=== PATIENT | female | born 1950 | race Caucasian/White ===

== ENCOUNTER 2020-04-15 10:27 | Inpatient (IN) | payer MEDICARE, OTHER, MEDICAID ==
[~2020-04-15] VITALS: Ht 160 cm; Wt 104.1 kg
--- NOTE | 2020-04-15 10:45 | PHYS DOC ---
Past Medical History Past Medical History: CHF, COPD, Diabetes-Type II, Hypertension, Hypothyroid, Other Additional Past Medical Histor: RLS, DIVERTICULITIS, NEUROPATHY Past Surgical History: Hip Replacement, Tubal ligation Smoking Status: Never Smoker Alcohol Use: None Drug Use: None General Adult EDM: Chief Complaint: MECHANICAL FALL HPI: HPI: Patient is a 69 year old female presents via EMS with report of right leg weakness causing fall earlier today. Patient also called EMS yesterday for similar requiring a lift assist. EMS noted patient's heart rate to be significantly low down into the 40s. Patient does report her heart rate typically is between 50 and 60. Patient denies any dizziness or lightheadedness. Patient does report her right leg/hip with significant pain. Denies head trauma or neck pain. Patient reports generalized malaise and weakness. Denies chest pain, shortness of air, or cough. Review of Systems: Review of Systems: Constitutional: Denies fever or chills Eyes: Denies redness or eye pain HENT: Denies nasal congestion or sore throat Respiratory: Denies cough or shortness of breath Cardiovascular: Denies chest pain or palpitations GI: Denies abdominal pain, nausea, or vomiting : Denies dysuria or hematuria Musculoskeletal: Denies back pain; reports bilateral hip pain right greater than left Integument: Denies rash or skin lesions Neurologic: Denies headache; reports generalized weakness Complete systems were reviewed and found to be within normal limits, except as documented in this note. Allergies: Allergies: Allergies Coded Allergies Type Severity Reaction Last Updated Verified vancomycin Adverse Reaction Intermediate fever 04/15/20 Yes Physical Exam: PE: Constitutional: Well developed, obese, no acute distress, non-toxic appearance HENT: Normocephalic, atraumatic Eyes: PERRL, EOMI, conjunctiva normal, no discharge, no nystagmus Neck: Normal range of motion, no tenderness, supple Lungs & Thorax: No respiratory distress, equal chest rise and fall Cardiac: Bradycardic, bilateral radial pulses +2 Abdomen: Soft, no tenderness, no guarding/rebound tenderness/distention; pelvis stable and nontender Skin: Warm, dry, no erythema Extremities: No tenderness, ROM intact, trace edema BLE, pain with range of motion about bilateral hip-right greater than left, no deformity Neurologic: Alert and oriented X 3, normal motor function, normal sensory function, no focal deficits noted Psychologic: Affect normal, judgment normal Current Patient Data: Vital Signs: Vital Signs Date Time Temp Pulse Resp B/P (MAP) Pulse Ox O2 Delivery O2 Flow Rate FiO2 04/15/20 10:27 97.5 41 16 103/45 (64) 95 Room Air 97.5 EKG: EKG: @1040 Bradycardic afib at 43bpm, RBBB, NO ST elevation, QRS 78ms, QT/QTc 458 /388ms, t wave inversion III Radiology/Procedures: Radiology/Procedures: PROCEDURE: HIP BILATERAL WITH PELVIS AP view of the pelvis and AP and frog-leg views of the right hip and frog-leg view of the left hip Clinical indications: Pain. FINDINGS: Total left hip arthroplasty is evident which is well aligned. There is fusion of the right hip joint. No acute fracture or dislocation or lytic process or diastases is evident. IMPRESSION: No acute osseous abnormality. Electronically signed by: Eduin Castillo MD (04/15/2020 11:40 AM) [id number] PROCEDURE: CHEST AP ONLY XR CHEST 1V CLINICAL INDICATIONS: Weakness. COMPARISON: No previous chest x-ray available. CT study of the abdomen dated January 02, 2020. Findings: There is focal eventration of the medial and anterior aspects of the right hemidiaphragm. There is a moderate-sized hiatal hernia present. There is blunting of the left lateral costophrenic angle due to extrapleural fat. These findings were seen on the CT study. Heart size is prominent. Some of this is due to rotation towards the left side and AP magnification. Otherwise no acute lung infiltrate or pleural effusion or pneumothorax or pulmonary edema is seen. IMPRESSION: No acute lung infiltrate. Electronically signed by: Eduin Castillo MD (04/15/2020 11:38 AM) [id number] PROCEDURE: CT HEAD AND CERVICAL SPINE WO EXAM: Head and cervical spine CT without contrast. HISTORY: Weakness. Pain. Fall. TECHNIQUE: Computed tomographic images of the head and cervical spine were obtained without intravenous contrast. *One or more of the following individualized dose reduction techniques were utilized for this examination: 1. Automated exposure control. 2. Adjustment of the mA and/or kV according to patient size. 3. Use of iterative reconstruction technique. COMPARISON: None. FINDINGS: Head: There is no acute hemorrhage. There is no mass effect or midline shift. There is no hydrocephalus. There are scattered areas of hypodensity within the cerebral white matter, likely due to chronic small vessel disease in a patient of this age. There are suspected small chronic infarct within the left cerebellum. The orbits are unremarkable. There are tiny maxillary sinus mucous retention cysts. The mastoid air cells are clear. There is no suspicious calvarial lesion. Cervical spine: There is multilevel endplate remodeling with disc space narrowing and anterior spurring. There is degenerative facet arthropathy at multiple levels with associated fusion of several facet joints. There is no acute fracture or suspicious osseous lesion. There is cervical curvature due to thoracic scoliosis. The airways midline and widely patent. There is an incidental azygos lobe. The combination of degenerative changes results in mild left foraminal stenosis at C3-C4. No severe stenosis is seen. IMPRESSION: 1. No acute intracranial finding or evidence of acute cervical spine trauma. 2. Bilateral cerebral white matter changes, likely due to chronic small vessel d isease. 3. Multilevel degenerative change involving the cervical spine, described above. Electronically signed by: Valerie Stevenson MD (04/15/2020 11:51 AM) [id number] Course & Med Decision Making: Course & Med Decision Making Pertinent Labs and Imaging studies reviewed. (See chart for details) Patient presents via EMS with report of generalized weakness and history of fall today and yesterday. Patient denies any head trauma. Patient with pain on range of motion to bilateral legs right greater than left at hip. EKG with bradycardic rhythm without P waves. Labs obtained and posted to chart. Significant hyperkalemia noted. Calcium gluconate, insulin, and dextrose provided. A continuous albuterol nebulizer treatment also given. CT head/cervical spine without acute process. Chest x-ray stable. Bilateral hip x-rays with pelvis AP also without acute finding. Patient requiring admission for further evaluation and treatment. Discussed with Dr. Rubio (hospitalist) who is in agreement with admission. Dr. Rubio requests consultation to nephrology and requests 40mg of IV Lasix. Discussed findings and plan with patient, who acknowledges understanding and agreement. Tavia Disclaimer: Tavia Disclaimer: This electronic medical record was generated, in whole or in part, using a voice recognition dictation system. Departure Departure Impression: Primary Impression: Hyperkalemia Additional Impressions: Generalized weakness Hip pain, bilateral Disposition: ADMITTED INPT THIS HOSP Admitting Physician: FLIP Quintana) Condition: GUARDED Critical Care Time Critical care time was 30 minutes which includes time at bedside, spent in discussion of patient's care with specialists and/or family members, with interpretation of laboratory and/or radiological studies and is exclusive of procedures. LATESHA CENTENO DO Apr 15, 2020 10:45
[2020-04-15 10:56] LABS: BASO % 0 % (0-3); EOS % 0 % (0-3); HEMATOCRIT 33.1 % (36.0-47.0); HEMOGLOBIN 10.2 g/dL (12.0-15.5); LYMPH # 0.7 x10^3/uL (1.0-4.8); LYMPH % 6 % (24-48); MEAN CORPUSCULAR HEMOGLOBIN 26 pg (25-35); MEAN CORPUSCULAR HGB CONC 31 g/dL (31-37); MEAN CORPUSCULAR VOLUME 85 fL (79-100); MONO # 0.5 x10^3/uL (0.0-1.1); MONO % 4 % (0-9); NEUT % 89 % (31-73); PLATELET COUNT 284 x10^3/uL (140-400); RED BLOOD COUNT 3.91 x10^6/uL (3.50-5.40); RED CELL DISTRIBUTION WIDTH 20.4 % (11.5-14.5); WHITE BLOOD COUNT 11.2 x10^3/uL (4.0-11.0)
[2020-04-15 11:09] LABS: ALBUMIN 3.8 g/dL (3.4-5.0); CALCIUM 8.8 mg/dL (8.5-10.1); CREATININE 2.1 mg/dL (0.6-1.0); GFR 23.4; MAGNESIUM 2.6 mg/dL (1.8-2.4); TOTAL BILIRUBIN 0.3 mg/dL (0.2-1.0); TOTAL PROTEIN 7.6 g/dL (6.4-8.2)
[2020-04-15 11:15] LABS: POTASSIUM 6.8 mmol/L (3.5-5.1)
[2020-04-15] MEDS ORDERED: DEXTROSE 50% 25 GM / 50ML DISP.SYRIN. IV ONE (11:15)
[2020-04-15] MEDS ORDERED: ALBUTEROL SULFATE 2.5 MG/3 ML NEBU. CONT NEB ONE (11:15)
[2020-04-15] MEDS ORDERED: CALCIUM GLUCONATE 1,000 MG/10 ML VIAL. IVP ONE (11:15)
[2020-04-15] MEDS ORDERED: INSULIN REGULAR 100 UNIT/ML 3ML VIAL. IV ONE (11:15)
[2020-04-15 11:27] LABS: % LYMPHS 6 % (24-48); % MONOS 5 % (0-10); % SEGS 89 % (35-66); PLT ESTIMATE ADEQUATE (ADEQUATE)
[2020-04-15 11:28] LABS: ANISOCYTOSIS SLIGHT; OVALOCYTES FEW; TARGET CELLS OCC; TEAR DROP CELLS OCC
--- NOTE | 2020-04-15 11:41 | RAD ---
XR CHEST 1V CLINICAL INDICATIONS: Weakness. COMPARISON: No previous chest x-ray available. CT study of the abdomen dated January 02, 2020. Findings: There is focal eventration of the medial and anterior aspects of the right hemidiaphragm. T here is a moderate-sized hiatal hernia present. There is blunting of the left lateral costophrenic an gle due to extrapleural fat. These findings were seen on the CT study. Heart size is prominent. Some of this is due to rotation towards the left side and AP magnification. Otherwise no acute lung infilt rate or pleural effusion or pneumothorax or pulmonary edema is seen. IMPRESSION: No acute lung infiltrate. Electronically signed by: Eduin Castillo MD (04/15/2020 11:38 AM) [id number]
--- NOTE | 2020-04-15 11:42 | RAD ---
AP view of the pelvis and AP and frog-leg views of the right hip and frog-leg view of the left hip Clinical indications: Pain. FINDINGS: Total left hip arthroplasty is evident which is well aligned. There is fusion of the right hip joint. No acute fracture or dislocation or lytic process or diastases is evident. IMPRESSION: No acute osseous abnormality. Electronically signed by: Eduin Castillo MD (04/15/2020 11:40 AM) [id number]
--- NOTE | 2020-04-15 11:53 | RAD ---
EXAM: Head and cervical spine CT without contrast. HISTORY: Weakness. Pain. Fall. TECHNIQUE: Computed tomographic images of the head and cervical spine were obtained without intraveno us contrast. *One or more of the following individualized dose reduction techniques were utilized for this examina tion: 1. Automated exposure control. 2. Adjustment of the mA and/or kV according to patient size. 3. Use of iterative reconstruction technique. COMPARISON: None. FINDINGS: Head: There is no acute hemorrhage. There is no mass effect or midline shift. There is no hydrocephal us. There are scattered areas of hypodensity within the cerebral white matter, likely due to chronic small vessel disease in a patient of this age. There are suspected small chronic infarct within the l eft cerebellum. The orbits are unremarkable. There are tiny maxillary sinus mucous retention cysts. T he mastoid air cells are clear. There is no suspicious calvarial lesion. Cervical spine: There is multilevel endplate remodeling with disc space narrowing and anterior spurri ng. There is degenerative facet arthropathy at multiple levels with associated fusion of several face t joints. There is no acute fracture or suspicious osseous lesion. There is cervical curvature due to thoracic scoliosis. The airways midline and widely patent. There is an incidental azygos lobe. The c ombination of degenerative changes results in mild left foraminal stenosis at C3-C4. No severe stenos is is seen. IMPRESSION: 1. No acute intracranial finding or evidence of acute cervical spine trauma. 2. Bilateral cerebral white matter changes, likely due to chronic small vessel disease. 3. Multilevel degenerative change involving the cervical spine, described above. Electronically signed by: Valerie Stevenson MD (04/15/2020 11:51 AM) [id number]
[2020-04-15] MEDS ORDERED: DEXTROSE 50% 25 GM / 50ML DISP.SYRIN. IV PRN (12:15)
[2020-04-15] MEDS ORDERED: ONDANSETRON PF 4 MG/2 ML VIAL. IV PRN (12:15)
[2020-04-15] MEDS ORDERED: FUROSEMIDE 40 MG/4 ML VIAL. IVP ONE (13:00)
[2020-04-15 13:35] VITALS: BP 103/23
[2020-04-15 15:00] VITALS: BP 104/32
[2020-04-15] MEDS ORDERED: IV NORMAL SALINE 500ML BAG 500 ML IV ONE (15:00)
[2020-04-15] MEDS ORDERED: traMADol 50 MG TABLET PO PRN (15:45)
--- NOTE | 2020-04-15 15:50 | PDOC1 ---
History and Physical Date of Admission Date of Admission DATE: 04/15/20 TIME: 15:30 Identification/Chief Complaint Chief Complaint Weakness Source Source: Chart review, Patient History of Present Illness History of Present Illness Patient 69-year-old female who presents to the ER for evaluation after fall earlier today. Patient also had a fall yesterday, for which she required EMS lift assist. She states her fall was secondary to right lower extremity weakness. She denies any head trauma. Since the time of her fall today she began complaining of left hip pain, 10/10, aggravated by movement. She denies any chest pain, shortness of breath, cough, or fever. Upon evaluation in ER she was noted to have potassium of 6.8, sodium 128, BUN 68, creatinine 2.1. Will admit patient for further medical management with nephrology consult. Past Medical History Past Medical History CHF, COPD, DM2, hypertension, hypothyroidism, restless leg syndrome, diverticulitis, peripheral neuropathy. Past Surgical History Past Surgical History Tubal ligation, hip replacement Family History Family History: Cancer, Coronary Artery Disease, Heart Disease Social History Smoke: No ALCOHOL: none Drugs: None Current Problem List Problem List Problems Medical Problems: (1) Generalized weakness Status: Acute (2) Hip pain, bilateral Status: Acute (3) Hyperkalemia Status: Acute Current Medications Current Medications Current Medications Calcium Gluconate (Calcium Gluconate) 1,000 mg 1X ONCE IVP Last administered on 04/15/20at 11:50; Start 04/15/20 at 11:15; Stop 04/15/20 at 11:18; Status DC Dextrose (Dextrose 50%-Water Syringe) 25 gm 1X ONCE IV Last administered on 04/15/20at 11:52; Start 04/15/20 at 11:15; Stop 04/15/20 at 11:18; Status DC Insulin Human Regular (HumuLIN R VIAL) 10 unit 1X ONCE IV Last administered on 04/15/20at 11:51; Start 04/15/20 at 11:15; Stop 04/15/20 at 11:18; Status DC Albuterol Sulfate (Ventolin Neb Soln) 10 mg 1X ONCE CONT NEB Last administered on 04/15/20at 12:00; Start 04/15/20 at 11:15; Stop 04/15/20 at 11:18; Status DC Furosemide (Lasix) 40 mg 1X ONCE IVP ; Start 04/15/20 at 13:00; Stop 04/15/20 at 13:01; Status DC Ondansetron HCl (Zofran) 4 mg PRN Q8HRS PRN IV NAUSEA/VOMITING; Start 04/15/20 at 12:15; Stop 04/16/20 at 12:14 Insulin Human Lispro (HumaLOG) 0-5 UNITS TIDWMEALS SQ ; Start 04/15/20 at 17:00 Dextrose (Dextrose 50%-Water Syringe) 12.5 gm PRN Q15MIN PRN IV SEE COMMENTS; Start 04/15/20 at 12:15 Sodium Chloride 500 ml @ 500 mls/hr 1X ONCE IV Last administered on 04/15/20at 15:23; Start 04/15/20 at 15:00; Stop 04/15/20 at 15:59 Allergies Allergies: Coded Allergies: vancomycin (Verified Adverse Reaction, Intermediate, fever, 04/15/20) ROS Review of System GENERAL: No history of weight change, weakness or fevers. SKIN: No bruising, hair changes or rashes. EYES: No blurred, double or loss of vision. NOSE AND THROAT: No history of nosebleeds, hoarseness or sore throat. HEART: Denies chest pain, denies palpitations. LUNGS: Denies cough, hemoptysis, wheezing or shortness of breath. GASTROINTESTINAL: Denies nausea, vomiting, abdominal pain. GENITOURINARY: Denies dysuria, frequency, urgency, hematuria. NEUROLOGIC: Denies history of numbness, tingling, tremor or weakness. PSYCHIATRIC: Denies anxiety, denies depression. ENDOCRINE: No history of heat or cold intolerance, polyuria or polydipsia. EXTREMITIES: Left hip pain, lower extremity weakness. Physical Exam Physical Exam General: Alert, Oriented X3, Cooperative, moderate distress. Morbid obesity. HEENT: PERRLA, EOMI Lungs: Decreased breath sounds, Normal air movement Heart: RRR, no murmurs Cardiovascular: S1, S2 Abdomen: Normal bowel sounds, Soft, No tenderness Extremities: Left hip tenderness. No clubbing, No cyanosis Skin: No rashes, No significant lesion Neuro: Normal speech, Normal tone, Sensation intact Psych/Mental Status: Mental status NL, Mood NL Vitals Vitals Vital Signs Date Time Temp Pulse Resp B/P (MAP) Pulse Ox O2 Delivery O2 Flow Rate FiO2 04/15/20 13:35 97.4 54 20 103/23 (49) 93 Room Air 97.4 Labs Labs Laboratory Tests Test 04/15/20 10:39 04/15/20 11:46 04/15/20 14:20 White Blood Count 11.2 x10^3/uL (4.0-11.0) Red Blood Count 3.91 x10^6/uL (3.50-5.40) Hemoglobin 10.2 g/dL (12.0-15.5) Hematocrit 33.1 % (36.0-47.0) Mean Corpuscular Volume 85 fL (79-100) Mean Corpuscular Hemoglobin 26 pg (25-35) Mean Corpuscular Hemoglobin Concent 31 g/dL (31-37) Red Cell Distribution Width 20.4 % (11.5-14.5) Platelet Count 284 x10^3/uL (140-400) Neutrophils (%) (Auto) 89 % (31-73) Lymphocytes (%) (Auto) 6 % (24-48) Monocytes (%) (Auto) 4 % (0-9) Eosinophils (%) (Auto) 0 % (0-3) Basophils (%) (Auto) 0 % (0-3) Neutrophils # (Auto) 10.0 x10^3/uL (1.8-7.7) Lymphocytes # (Auto) 0.7 x10^3/uL (1.0-4.8) Monocytes # (Auto) 0.5 x10^3/uL (0.0-1.1) Eosinophils # (Auto) 0.0 x10^3/uL (0.0-0.7) Basophils # (Auto) 0.0 x10^3/uL (0.0-0.2) Segmented Neutrophils % 89 % (35-66) Lymphocytes % 6 % (24-48) Monocytes % 5 % (0-10) Platelet Estimate Adequate (ADEQUATE) Anisocytosis Slight Target Cells Occ Tear Drop Cells Occ Ovalocytes Few Sodium Level 128 mmol/L (136-145) Potassium Level 6.8 mmol/L (3.5-5.1) Chloride Level 98 mmol/L (98-107) Carbon Dioxide Level 19 mmol/L (21-32) Anion Gap 11 (6-14) Blood Urea Nitrogen 68 mg/dL (7-20) Creatinine 2.1 mg/dL (0.6-1.0) Estimated GFR (Cockcroft-Gault) 23.4 BUN/Creatinine Ratio 32 (6-20) Glucose Level 130 mg/dL (70-99) Calcium Level 8.8 mg/dL (8.5-10.1) Magnesium Level 2.6 mg/dL (1.8-2.4) Total Bilirubin 0.3 mg/dL (0.2-1.0) Aspartate Amino Transf (AST/SGOT) 16 U/L (15-37) Alanine Aminotransferase (ALT/SGPT) 20 U/L (14-59) Alkaline Phosphatase 67 U/L (46-116) Creatine Kinase 209 U/L (26-192) Creatine Kinase MB (Mass) 4.0 ng/mL (0.0-3.6) Creatine Kinase MB Relative Index 1.9 % (0-4) Troponin I Quantitative < 0.017 ng/mL (0.000-0.055) < 0.017 ng/mL (0.000-0.055) Total Protein 7.6 g/dL (6.4-8.2) Albumin 3.8 g/dL (3.4-5.0) Albumin/Globulin Ratio 1.0 (1.0-1.7) Lactic Acid Level 1.4 mmol/L (0.4-2.0) Laboratory Tests Test 04/15/20 10:39 04/15/20 11:46 04/15/20 14:20 White Blood Count 11.2 x10^3/uL (4.0-11.0) Red Blood Count 3.91 x10^6/uL (3.50-5.40) Hemoglobin 10.2 g/dL (12.0-15.5) Hematocrit 33.1 % (36.0-47.0) Mean Corpuscular Volume 85 fL (79-100) Mean Corpuscular Hemoglobin 26 pg (25-35) Mean Corpuscular Hemoglobin Concent 31 g/dL (31-37) Red Cell Distribution Width 20.4 % (11.5-14.5) Platelet Count 284 x10^3/uL (140-400) Neutrophils (%) (Auto) 89 % (31-73) Lymphocytes (%) (Auto) 6 % (24-48) Monocytes (%) (Auto) 4 % (0-9) Eosinophils (%) (Auto) 0 % (0-3) Basophils (%) (Auto) 0 % (0-3) Neutrophils # (Auto) 10.0 x10^3/uL (1.8-7.7) Lymphocytes # (Auto) 0.7 x10^3/uL (1.0-4.8) Monocytes # (Auto) 0.5 x10^3/uL (0.0-1.1) Eosinophils # (Auto) 0.0 x10^3/uL (0.0-0.7) Basophils # (Auto) 0.0 x10^3/uL (0.0-0.2) Segmented Neutrophils % 89 % (35-66) Lymphocytes % 6 % (24-48) Monocytes % 5 % (0-10) Platelet Estimate Adequate (ADEQUATE) Anisocytosis Slight Target Cells Occ Tear Drop Cells Occ Ovalocytes Few Sodium Level 128 mmol/L (136-145) Potassium Level 6.8 mmol/L (3.5-5.1) Chloride Level 98 mmol/L (98-107) Carbon Dioxide Level 19 mmol/L (21-32) Anion Gap 11 (6-14) Blood Urea Nitrogen 68 mg/dL (7-20) Creatinine 2.1 mg/dL (0.6-1.0) Estimated GFR (Cockcroft-Gault) 23.4 BUN/Creatinine Ratio 32 (6-20) Glucose Level 130 mg/dL (70-99) Calcium Level 8.8 mg/dL (8.5-10.1) Magnesium Level 2.6 mg/dL (1.8-2.4) Total Bilirubin 0.3 mg/dL (0.2-1.0) Aspartate Amino Transf (AST/SGOT) 16 U/L (15-37) Alanine Aminotransferase (ALT/SGPT) 20 U/L (14-59) Alkaline Phosphatase 67 U/L (46-116) Creatine Kinase 209 U/L (26-192) Creatine Kinase MB (Mass) 4.0 ng/mL (0.0-3.6) Creatine Kinase MB Relative Index 1.9 % (0-4) Troponin I Quantitative < 0.017 ng/mL (0.000-0.055) < 0.017 ng/mL (0.000-0.055) Total Protein 7.6 g/dL (6.4-8.2) Albumin 3.8 g/dL (3.4-5.0) Albumin/Globulin Ratio 1.0 (1.0-1.7) Lactic Acid Level 1.4 mmol/L (0.4-2.0) Images Images PROCEDURE: HIP BILATERAL WITH PELVIS AP view of the pelvis and AP and frog-leg views of the right hip and frog-leg view of the left hip Clinical indications: Pain. FINDINGS: Total left hip arthroplasty is evident which is well aligned. There is fusion of the right hip joint. No acute fracture or dislocation or lytic process or diastases is evident. IMPRESSION: No acute osseous abnormality. Electronically signed by: Eduin Castillo MD (04/15/2020 11:40 AM) [id number] PROCEDURE: CHEST AP ONLY XR CHEST 1V CLINICAL INDICATIONS: Weakness. COMPARISON: No previous chest x-ray available. CT study of the abdomen dated January 02, 2020. Findings: There is focal eventration of the medial and anterior aspects of the right hemidiaphragm. There is a moderate-sized hiatal hernia present. There is blunting of the left lateral costophrenic angle due to extrapleural fat. These findings were seen on the CT study. Heart size is prominent. Some of this is due to rotation towards the left side and AP magnification. Otherwise no acute lung infiltrate or pleural effusion or pneumothorax or pulmonary edema is seen. IMPRESSION: No acute lung infiltrate. Electronically signed by: Eduin Castillo MD (04/15/2020 11:38 AM) [id number] PROCEDURE: CT HEAD AND CERVICAL SPINE WO EXAM: Head and cervical spine CT without contrast. HISTORY: Weakness. Pain. Fall. TECHNIQUE: Computed tomographic images of the head and cervical spine were obtained without intravenous contrast. *One or more of the following individualized dose reduction techniques were utilized for this examination: 1. Automated exposure control. 2. Adjustment of the mA and/or kV according to patient size. 3. Use of iterative reconstruction technique. COMPARISON: None. FINDINGS: Head: There is no acute hemorrhage. There is no mass effect or midline shift. Th ere is no hydrocephalus. There are scattered areas of hypodensity within the cerebral white matter, likely due to chronic small vessel disease in a patient of this age. There are suspected small chronic infarct within the left cerebellum. The orbits are unremarkable. There are tiny maxillary sinus mucous retention cysts. The mastoid air cells are clear. There is no suspicious sabina rial lesion. Cervical spine: There is multilevel endplate remodeling with disc space narrowing and anterior spurring. There is degenerative facet arthropathy at multiple levels with associated fusion of several facet joints. There is no acute fracture or suspicious osseous lesion. There is cervical curvature due to thoracic scoliosis. The airways midline and widely patent. There is an incidental azygos lobe. The combination of degenerative changes results in mild left foraminal stenosis at C3-C4. No severe stenosis is seen. IMPRESSION: 1. No acute intracranial finding or evidence of acute cervical spine trauma. 2. Bilateral cerebral white matter changes, likely due to chronic small vessel disease. 3. Multilevel degenerative change involving the cervical spine, described above. VTE Prophylaxis Ordered VTE Prophylaxis Devices: No VTE Pharmacological Prophylaxi: Yes Assessment/Plan Assessment/Plan Hypokalemia Hyponatremia Weakness MANUELA Vasomotor nephropathy Sinus bradycardia Physical debility Plan: Patient was given albuterol nebulizer, calcium gluconate, insulin, and dextrose in the ED for hyperkalemia. Will add Lasix 40x1. Unknown baseline kidney function CT head/cervical spine showed no acute process. Bilateral hip x-rays negative for acute process. Consultation placed to nephrology. Will provide IV hydration Patient notes a history of bradycardia at baseline, with heart rate consistently in 50s. Will continue to monitor and consult cardiology if necessary. PT/OT Resume home medications FEN - Cardiac diet PPX - Heparin FULL CODE Dispo - inpatient for above Justifications for Admission Other Justification PÉREZ TOLENTINO MD Apr 15, 2020 15:50
[2020-04-15] MEDS ORDERED: HYDROcodone/APAP 5/325MG 1 TAB TABLET PO PRN (16:00)
[2020-04-15] MEDS: INSULIN LISPRO 300 UNITS/3 ML VIAL. SQ SCH (17:00)
--- NOTE | 2020-04-15 17:25 | EKG ---
[facility] [address] [place] [address] Test Date: 2020-04-15 Test Time: 10:40:14 Pat Name: GANESH GOLDBERG Department: Room: Gender: F Clerk Typist: : [id number] Requested By: LATESHA CENTENO Order Number: [id number] Reading MD: Measurements Intervals [place] Rate: 43 P: HI: QRS: -4 QRSD: 78 T: 9 QT: 458 QTc: 388 Interpretive Statements IRREGULAR RHYTHM, NO P-WAVE FOUND LEFTWARD AXIS R-S TRANSITION ZONE IN V LEADS DISPLACED TO THE RIGHT LOW LIMB LEAD VOLTAGE QRS(T) CONTOUR ABNORMALITY CONSIDER ANTEROLATERAL MYOCARDIAL DAMAGE POSSIBLY ABNORMAL ECG RI6.01 No previous ECG available for comparison
[2020-04-15 17:29] LABS: BILIRUBIN,URINE NEGATIVE (NEG); CLARITY,URINE CLOUDY; COLOR,URINE YELLOW; NITRITE,URINE NEGATIVE (NEG); PH,URINE 5.5 (<5.0-8.0); PROTEIN,URINE NEGATIVE (NEG-TRACE); UROBILINOGEN,URINE 0.2 mg/dL (0.2 mg/dL)
[2020-04-15 17:57] LABS: BACTERIA,URINE FEW /HPF (0-FEW); HYALINE CASTS, URINE FEW /HPF; RBC,URINE 0 /HPF (0-2)
[2020-04-15 19:00] VITALS: BP 103/37
[2020-04-15 23:00] VITALS: BP 115/51
[2020-04-16 03:00] VITALS: BP 128/55
[2020-04-16 07:00] VITALS: BP 111/50
[2020-04-16] MEDS: INSULIN LISPRO 300 UNITS/3 ML VIAL. SQ SCH ×3 (07:20→17:00)
[2020-04-16 10:07] LABS: BASO # 0.1 x10^3/uL (0.0-0.2); BASO % 1 % (0-3); EOS # 0.1 x10^3/uL (0.0-0.7); EOS % 2 % (0-3); HEMATOCRIT 31.7 % (36.0-47.0); HEMOGLOBIN 10.3 g/dL (12.0-15.5); LYMPH # 1.2 x10^3/uL (1.0-4.8); LYMPH % 20 % (24-48); MEAN CORPUSCULAR HEMOGLOBIN 27 pg (25-35); MEAN CORPUSCULAR HGB CONC 33 g/dL (31-37); MEAN CORPUSCULAR VOLUME 84 fL (79-100); MONO # 0.4 x10^3/uL (0.0-1.1); MONO % 7 % (0-9); NEUT % 70 % (31-73); PLATELET COUNT 246 x10^3/uL (140-400); RED BLOOD COUNT 3.78 x10^6/uL (3.50-5.40); RED CELL DISTRIBUTION WIDTH 20.2 % (11.5-14.5); WHITE BLOOD COUNT 5.7 x10^3/uL (4.0-11.0)
[2020-04-16 10:19] LABS: CALCIUM 8.8 mg/dL (8.5-10.1); CREATININE 1.2 mg/dL (0.6-1.0); GFR 44.7
--- NOTE | 2020-04-16 10:22 | PDOC2 ---
ZACHARIAH LICEA NIB FINISHER 04/16/20 1022: CARDIAC CONSULT DATE OF CONSULT Date of Consult DATE: 04/16/20 TIME: 10:08 REASON FOR CONSULT Reason for Consult: irregular rhythm REFERRING PHYSICIAN Referring Physician: Dr. Renee SOURCE Source: Chart review, Patient HISTORY OF PRESENT ILLNESS HISTORY OF PRESENT ILLNESS This is a 69 yo female who presented secondary to right leg weakness and significant pain in her right leg/hip. Patient had fall due to leg weakness yesterday. Had to call EMS for assisted. Had fall the following day and has been having pain so she came into the ED for further evaluation and treatment. Denies any dizziness, lightheadedness, syncope, chest pain, palpitations, or nausea/vomiting. Noted with MANUELA and hyperkalemia with potassium of 6.8. Was bradycardic with frequent PVC's, which prompted this consult. Follows with [facility] cardiology. PAST MEDICAL HISTORY Cardiovascular: CAD (nonobstructive ), CHF, HTN, Other (NICM) Pulmonary: COPD, Other (PAZ) CENTRAL NERVOUS SYSTEM: Periperal neuropathy GI: Diverticulosis, GERD Psych: Depression Renal/: Chronic renal insuff Endocrine: Diabetes, Hypothyroidism, Other (obesity ) PAST SURGICAL HISTORY Past Surgical History: Tubal Ligation, Other (CardioMEMS heart failure monitoring device ) FAMILY HISTORY Family History: Heart Disease, Hypertension SOCIAL HISTORY Smoke: No ALCOHOL: none Drugs: None Lives: Alone CURRENT MEDICATIONS CURRENT MEDICATIONS Current Medications Medications (Trade) Dose Ordered Sig/Cici Route PRN Reason Start Time Stop Time Status Last Admin Dose Admin Calcium Gluconate (Calcium Gluconate) 1,000 mg 1X ONCE IVP 04/15/20 11:15 04/15/20 11:18 DC 04/15/20 11:50 Dextrose (Dextrose 50%-Water Syringe) 25 gm 1X ONCE IV 04/15/20 11:15 04/15/20 11:18 DC 04/15/20 11:52 Insulin Human Regular (HumuLIN R VIAL) 10 unit 1X ONCE IV 04/15/20 11:15 04/15/20 11:18 DC 04/15/20 11:51 Albuterol Sulfate (Ventolin Neb Soln) 10 mg 1X ONCE CONT NEB 04/15/20 11:15 04/15/20 11:18 DC 04/15/20 12:00 Sodium Chloride 500 ml @ 500 mls/hr 1X ONCE IV 04/15/20 15:00 1/6/21 16:03 DC 04/15/20 15:23 Acetaminophen/ Hydrocodone Bitart (Lortab 5/325) 1 tab PRN Q4HRS PRN PO MODERATE TO SEVERE PAIN 04/15/20 16:00 04/16/20 06:02 ALLERGIES ALLERGIES: Coded Allergies: vancomycin (Verified Adverse Reaction, Intermediate, fever, 04/15/20) ROS Review of System 14 point ROS conducted with pertinent positives noted above in hPI PHYSICAL EXAM General: Alert, Oriented X3, Cooperative, No acute distress HEENT: Atraumatic, Mucous membr. moist/pink Lungs: Clear to auscultation Heart: Regular rate (SR with PVC's ) Abdomen: Soft, Other (obese ) Extremities: Other (trace bilateral LE edema ) Neuro: Normal speech, Sensation intact Psych/Mental Status: Mental status NL, Mood NL MUSCULOSKELETAL: Osteoarthritic changes both hands VITALS/I&O VITALS/I&O: Vital Signs Date Time Temp Pulse Resp B/P (MAP) Pulse Ox O2 Delivery O2 Flow Rate FiO2 04/16/20 07:11 Room Air 04/16/20 07:00 98.7 54 16 111/50 (70) 95 98.7 I & O 04/15/20 04/15/20 04/16/20 15:00 23:00 07:00 Intake Total 200 ml 240 ml Balance 200 ml 240 ml LABS Lab: Laboratory Tests Test 04/15/20 10:39 04/15/20 11:46 04/15/20 14:20 04/15/20 16:20 White Blood Count 11.2 x10^3/uL (4.0-11.0) H Red Blood Count 3.91 x10^6/uL (3.50-5.40) Hemoglobin 10.2 g/dL (12.0-15.5) L Hematocrit 33.1 % (36.0-47.0) L Mean Corpuscular Volume 85 fL (79-100) Mean Corpuscular Hemoglobin 26 pg (25-35) Mean Corpuscular Hemoglobin Concent 31 g/dL (31-37) Red Cell Distribution Width 20.4 % (11.5-14.5) H Platelet Count 284 x10^3/uL (140-400) Neutrophils (%) (Auto) 89 % (31-73) H Lymphocytes (%) (Auto) 6 % (24-48) L Monocytes (%) (Auto) 4 % (0-9) Eosinophils (%) (Auto) 0 % (0-3) Basophils (%) (Auto) 0 % (0-3) Neutrophils # (Auto) 10.0 x10^3/uL (1.8-7.7) H Lymphocytes # (Auto) 0.7 x10^3/uL (1.0-4.8) L Monocytes # (Auto) 0.5 x10^3/uL (0.0-1.1) Eosinophils # (Auto) 0.0 x10^3/uL (0.0-0.7) Basophils # (Auto) 0.0 x10^3/uL (0.0-0.2) Segmented Neutrophils % 89 % (35-66) H Lymphocytes % 6 % (24-48) L Monocytes % 5 % (0-10) Platelet Estimate Adequate (ADEQUATE) Anisocytosis Slight Target Cells Occ Tear Drop Cells Occ Ovalocytes Few Sodium Level 128 mmol/L (136-145) L Potassium Level 6.8 mmol/L (3.5-5.1) *H Chloride Level 98 mmol/L (98-107) Carbon Dioxide Level 19 mmol/L (21-32) L Anion Gap 11 (6-14) Blood Urea Nitrogen 68 mg/dL (7-20) H Creatinine 2.1 mg/dL (0.6-1.0) H Estimated GFR (Cockcroft-Gault) 23.4 BUN/Creatinine Ratio 32 (6-20) H Glucose Level 130 mg/dL (70-99) H Calcium Level 8.8 mg/dL (8.5-10.1) Magnesium Level 2.6 mg/dL (1.8-2.4) H Total Bilirubin 0.3 mg/dL (0.2-1.0) Aspartate Amino Transferase (AST) 16 U/L (15-37) Alanine Aminotransferase (ALT) 20 U/L (14-59) Alkaline Phosphatase 67 U/L (46-116) Creatine Kinase 209 U/L (26-192) H Creatine Kinase MB (Mass) 4.0 ng/mL (0.0-3.6) H Creatine Kinase MB Relative Index 1.9 % (0-4) Troponin I Quantitative < 0.017 ng/mL (0.000-0.055) < 0.017 ng/mL (0.000-0.055) < 0.017 ng/mL (0.000-0.055) Total Protein 7.6 g/dL (6.4-8.2) Albumin 3.8 g/dL (3.4-5.0) Albumin/Globulin Ratio 1.0 (1.0-1.7) Lactic Acid Level 1.4 mmol/L (0.4-2.0) Test 04/15/20 16:59 04/15/20 17:16 04/15/20 21:08 Glucose (Fingerstick) 94 mg/dL (70-99) 129 mg/dL (70-99) H Urine Collection Type Unknown Urine Color Yellow Urine Clarity Cloudy Urine pH 5.5 (<5.0-8.0) Urine Specific [place] 1.020 (1.000-1.030) Urine Protein Negative mg/dL (NEG-TRACE) Urine Glucose (UA) Negative mg/dL (NEG) Urine Ketones (Stick) Negative mg/dL (NEG) Urine Blood Negative (NEG) Urine Nitrite Negative (NEG) Urine Bilirubin Negative (NEG) Urine Urobilinogen Dipstick 0.2 mg/dL (0.2 mg/dL) Urine Leukocyte Esterase Small (NEG) Urine RBC 0 /HPF (0-2) Urine WBC 11-20 /HPF (0-4) Urine Squamous Epithelial Cells Few /LPF Urine Bacteria Few /HPF (0-FEW) Urine Hyaline Casts Few /HPF Urine Mucus Slight /LPF Laboratory Tests 04/15/20 10:39 Laboratory Tests 04/15/20 10:39 ECHOCARDIOGRAM ECHOCARDIOGRAM 01/07/19 - 2-D + DOPPLER ECHOCARDIOGRAM Normal left ventricular cavity size with mild concentric hypertrophy. Prominent basal septum. Normal systolic function. Estimated EF ~60%. Indeterminate diastolic function. Mildly dilated right ventricle size with normal systolic function. Moderately dilated left atrium. Normal right atrial size. Moderate mitral annular calcification. No mitral valve stenosis. No pericardial effusion. Pulmonary artery systolic pressure could not be estimated due to inadequate visualization of IVC. Comparison is made with a prior transthoracic echocardiogram performed 09/26/2018. There have been no significant interval changes. <Conclusion> The left ventricular systolic function is normal. The Ejection Fraction is 55-60%. There is normal LV segmental wall motion. Transmitral Doppler flow pattern is Grade I-abnormal relaxation pattern. Trace mitral regurgitation. Trace to mild tricuspid regurgitation with an estimated PAP of 41 mmHg. There is no evidence of significant pericardial effusion. DATE: 01/17/19 1610 STRESS TEST STRESS TEST 01/08/19 - Procedure: [facility] MULTI GATED THALLIUM [facility] MPI STRESS TEST SUMMARY/OPINION: This post stress only study is abnormal. There is a moderate zone of lateral anterior and inferolateral decreased perfusion. In the absence of resting study cannot be determined if this is fixed or reversible or if it represents attenuation artifact. The post stress global ejection fraction is 58% end-diastolic volume 66 mL which are within normal limits. The patient has mild abnormal septal motion. The perfusion defect has mild hypokinesis post stress. The patient deferred having rest images at her discretion. ASSESSMENT/PLAN ASSESSMENT/PLAN 1. Right LE weakness, pain with subsequent fall 2. MANUELA on CKD with significant hyperkalemia. K 6.8 upon arrival. Repeat labs pending 3. Bradycardia; sinus with frequent PVC's. No significant pauses. HR improved with correction of lytes. HR presently near 70 4. Chronic diastolic CHF; s/p CardioMEMS heart failure monitoring device. appears compensated. Follow with Dr. Daily with cardiology 5. H/o NICM; Most recent echo showed preserved LV systolic function with EF 55- 60% as noted above. 6. Hypertension; low end 7. Diabetes, II 8. Hypothyroidism; check TSH Recommendations TSH Avoid AV danni blocking agents Hold lisinopril, lasix with MANUELA IVFs Avoid nephrotoxin Echo to assess LV systolic function ZEINAB SOLORZANO MD 04/16/201909: CARDIAC CONSULT ASSESSMENT/PLAN ASSESSMENT/PLAN Patient seen and examined I agree with our nurse practitioners assessment and plan as above. MANUELA on CKD with significant hyperkalemia. K 6.8 upon arrival. Being evaluated by the renal service. Bradycardia; sinus with frequent PVC's. No significant pauses. HR improved with correction of lytes. HR presently near 70 Chronic diastolic CHF; s/p CardioMEMS heart failure monitoring device. appears compensated. Follow with Dr. Daily with cardiology H/o NICM; Most recent echo showed preserved LV systolic function with EF 55-60% as noted above. Hypertension; low end. Holding Lasix and lisinopril. Labs being monitored as above ZACHARIAH LICEA APRN Apr 16, 2020 10:22 ZEINAB SOLORZANO MD Apr 16, 2020 19:10
[2020-04-16 10:25] LABS: ALBUMIN 3.2 g/dL (3.4-5.0); ALBUMIN/GLOBULIN RATIO 0.8 (1.0-1.7); TOTAL BILIRUBIN 0.3 mg/dL (0.2-1.0); TOTAL PROTEIN 7.3 g/dL (6.4-8.2)
[2020-04-16 10:26] LABS: POTASSIUM 4.8 mmol/L (3.5-5.1)
[2020-04-16 11:00] VITALS: BP 104/50
--- NOTE | 2020-04-16 11:31 | PDOC2 ---
CONSULT Date of Consult Date of Consult DATE: 04/16/20 TIME: 11:16 Reason for Consult Reason for Consult: MANUELA Identification/Chief Complaint Chief Complaint Weakness and fall Source Source: Chart review, Patient History of Present Illness Reason for Visit: Patient is a 69 year old CF presents via EMS with report of right leg weakness causing fall on 04/15 . Patient also called EMS on 04/14 for similar requiring a lift assist. EMS noted patient's heart rate to be significantly low down into the 40s. Patient does report her heart rate typically is between 50 and 60. Patient denies any dizziness or lightheadedness. Patient does report her right leg/hip with significant pain. Denies head trauma or neck pain. Patient reports generalized malaise and weakness. Denies chest pain, shortness of air, or cough. She denies any N/V/D. Denies any urinary complaints. She is not aware of Dx of CKD, she does recall rthat she was CKD stage 2 during her Hospitalization at [place] few years back when she underwent Cholecystectomy She was recently admitted at [facility] for diverticulitis, doesn't recall labs/ She follows with Dr. Caballero She denies use of NSAID's. She has been started on couple of Psych meds . She has been on lasix for many years . Currently she denies any complaints except reports her mouth feels dry . She reports good UOP and has been using [facility] [place] Past Medical History Cardiovascular: CHF, HTN Pulmonary: COPD CENTRAL NERVOUS SYSTEM: Periperal neuropathy GI: Diverticulosis Endocrine: Diabetes, Hypothyroidism Family History Family History: Cancer, Coronary Artery Disease, Heart Disease Social History No ALCOHOL: none Drugs: None Current Problem List Problem List Problems Medical Problems: (1) Generalized weakness Status: Acute (2) Hip pain, bilateral Status: Acute (3) Hyperkalemia Status: Acute Current Medications Current Medications Current Medications Calcium Gluconate (Calcium Gluconate) 1,000 mg 1X ONCE IVP Last administered on 04/15/20at 11:50; Start 04/15/20 at 11:15; Stop 04/15/20 at 11:18; Status DC Dextrose (Dextrose 50%-Water Syringe) 25 gm 1X ONCE IV Last administered on 04/15/20at 11:52; Start 04/15/20 at 11:15; Stop 04/15/20 at 11:18; Status DC Insulin Human Regular (HumuLIN R VIAL) 10 unit 1X ONCE IV Last administered on 04/15/20at 11:51; Start 04/15/20 at 11:15; Stop 04/15/20 at 11:18; Status DC Albuterol Sulfate (Ventolin Neb Soln) 10 mg 1X ONCE CONT NEB Last administered on 04/15/20at 12:00; Start 04/15/20 at 11:15; Stop 04/15/20 at 11:18; Status DC Furosemide (Lasix) 40 mg 1X ONCE IVP ; Start 04/15/20 at 13:00; Stop 04/15/20 at 13:01; Status DC Ondansetron HCl (Zofran) 4 mg PRN Q8HRS PRN IV NAUSEA/VOMITING; Start 04/15/20 at 12:15; Stop 04/16/20 at 12:14 Insulin Human Lispro (HumaLOG) 0-5 UNITS TIDWMEALS SQ ; Start 04/15/20 at 17:00 Dextrose (Dextrose 50%-Water Syringe) 12.5 gm PRN Q15MIN PRN IV SEE COMMENTS; Start 04/15/20 at 12:15 Sodium Chloride 500 ml @ 500 mls/hr 1X ONCE IV Last administered on 04/15/20at 15:23; Start 04/15/20 at 15:00; Stop 04/15/20 at 16:03; Status DC Tramadol HCl (Ultram) 50 mg PRN Q6HRS PRN PO MILD TO MODERATE PAIN; Start 04/15/20 at 15:45 Acetaminophen/ Hydrocodone Bitart (Lortab 5/325) 1 tab PRN Q4HRS PRN PO MODERATE TO SEVERE PAIN Last administered on 04/16/20at 06:02; Start 04/15/20 at 16:00 Sodium Chloride 1,000 ml @ 75 mls/hr [id number] IV ; Start 04/16/20 at 09:45 Allergies Allergies: Coded Allergies: vancomycin (Verified Adverse Reaction, Intermediate, fever, 04/15/20) ROS Review of System As per HPI, rest of the ROS is negative Physical Exam Physical Exam Gen- NAD, propped up in bed HEEN OM dry,anicteric Neck supple Lungs CTA, Non labored CV RRR Abd Soft, NT, obese Neuro AXOx3 , grossly normal No Joy Skin No Rash Ext No LE edema Vital Signs Vital Signs Date Time Temp Pulse Resp B/P (MAP) Pulse Ox O2 Delivery O2 Flow Rate FiO2 04/16/20 11:00 98.6 74 18 104/50 (68) 96 Room Air 98.6 Assessment & Plan MANUELA - Vasomotor No prior labs available to me, per patient Dx of CKD2 @ [facility] few years back , UA W BC +, No nitrites, pt asymptomatic No labs ordered this am, ordered stat - improving renal function , recd IVF bolus Supportive care, I/O, avoid nephrotoxins HyperKalemia- POA- K 6.8 , temporizing measures in Er, Bradycardia at presentation . Pt denies taking K supplements Ordered stat Labs - K back to normal HypoNatremia- resolved Metabolic acidosis POA - resolved Right LE weaknes, pain with subsequent fall Chronic diastolic CHF Hypertension BP low at presentation - Home med list not available in the chart Diabetes, II Hypothyroidism; check TSH Weakness/ Fall - per primary Labs Labs Laboratory Tests Test 04/15/20 10:39 04/15/20 11:46 04/15/20 14:20 04/15/20 16:20 White Blood Count 11.2 x10^3/uL (4.0-11.0) Red Blood Count 3.91 x10^6/uL (3.50-5.40) Hemoglobin 10.2 g/dL (12.0-15.5) Hematocrit 33.1 % (36.0-47.0) Mean Corpuscular Volume 85 fL (79-100) Mean Corpuscular Hemoglobin 26 pg (25-35) Mean Corpuscular Hemoglobin Concent 31 g/dL (31-37) Red Cell Distribution Width 20.4 % (11.5-14.5) Platelet Count 284 x10^3/uL (140-400) Neutrophils (%) (Auto) 89 % (31-73) Lymphocytes (%) (Auto) 6 % (24-48) Monocytes (%) (Auto) 4 % (0-9) Eosinophils (%) (Auto) 0 % (0-3) Basophils (%) (Auto) 0 % (0-3) Neutrophils # (Auto) 10.0 x10^3/uL (1.8-7.7) Lymphocytes # (Auto) 0.7 x10^3/uL (1.0-4.8) Monocytes # (Auto) 0.5 x10^3/uL (0.0-1.1) Eosinophils # (Auto) 0.0 x10^3/uL (0.0-0.7) Basophils # (Auto) 0.0 x10^3/uL (0.0-0.2) Segmented Neutrophils % 89 % (35-66) Lymphocytes % 6 % (24-48) Monocytes % 5 % (0-10) Platelet Estimate Adequate (ADEQUATE) Anisocytosis Slight Target Cells Occ Tear Drop Cells Occ Ovalocytes Few Sodium Level 128 mmol/L (136-145) Potassium Level 6.8 mmol/L (3.5-5.1) Chloride Level 98 mmol/L (98-107) Carbon Dioxide Level 19 mmol/L (21-32) Anion Gap 11 (6-14) Blood Urea Nitrogen 68 mg/dL (7-20) Creatinine 2.1 mg/dL (0.6-1.0) Estimated GFR (Cockcroft-Gault) 23.4 BUN/Creatinine Ratio 32 (6-20) Glucose Level 130 mg/dL (70-99) Calcium Level 8.8 mg/dL (8.5-10.1) Magnesium Level 2.6 mg/dL (1.8-2.4) Total Bilirubin 0.3 mg/dL (0.2-1.0) Aspartate Amino Transf (AST/SGOT) 16 U/L (15-37) Alanine Aminotransferase (ALT/SGPT) 20 U/L (14-59) Alkaline Phosphatase 67 U/L (46-116) Creatine Kinase 209 U/L (26-192) Creatine Kinase MB (Mass) 4.0 ng/mL (0.0-3.6) Creatine Kinase MB Relative Index 1.9 % (0-4) Troponin I Quantitative < 0.017 ng/mL (0.000-0.055) < 0.017 ng/mL (0.000-0.055) < 0.017 ng/mL (0.000-0.055) Total Protein 7.6 g/dL (6.4-8.2) Albumin 3.8 g/dL (3.4-5.0) Albumin/Globulin Ratio 1.0 (1.0-1.7) Lactic Acid Level 1.4 mmol/L (0.4-2.0) Test 04/15/20 16:59 04/15/20 17:16 04/15/20 21:08 04/16/20 09:47 Glucose (Fingerstick) 94 mg/dL (70-99) 129 mg/dL (70-99) Urine Collection Type Unknown Urine Color Yellow Urine Clarity Cloudy Urine pH 5.5 (<5.0-8.0) Urine Specific [place] 1.020 (1.000-1.030) Urine Protein Negative mg/dL (NEG-TRACE) Urine Glucose (UA) Negative mg/dL (NEG) Urine Ketones (Stick) Negative mg/dL (NEG) Urine Blood Negative (NEG) Urine Nitrite Negative (NEG) Urine Bilirubin Negative (NEG) Urine Urobilinogen Dipstick 0.2 mg/dL (0.2 mg/dL) Urine Leukocyte Esterase Small (NEG) Urine RBC 0 /HPF (0-2) Urine WBC 11-20 /HPF (0-4) Urine Squamous Epithelial Cells Few /LPF Urine Bacteria Few /HPF (0-FEW) Urine Hyaline Casts Few /HPF Urine Mucus Slight /LPF White Blood Count 5.7 x10^3/uL (4.0-11.0) Red Blood Count 3.78 x10^6/uL (3.50-5.40) Hemoglobin 10.3 g/dL (12.0-15.5) Hematocrit 31.7 % (36.0-47.0) Mean Corpuscular Volume 84 fL (79-100) Mean Corpuscular Hemoglobin 27 pg (25-35) Mean Corpuscular Hemoglobin Concent 33 g/dL (31-37) Red Cell Distribution Width 20.2 % (11.5-14.5) Platelet Count 246 x10^3/uL (140-400) Neutrophils (%) (Auto) 70 % (31-73) Lymphocytes (%) (Auto) 20 % (24-48) Monocytes (%) (Auto) 7 % (0-9) Eosinophils (%) (Auto) 2 % (0-3) Basophils (%) (Auto) 1 % (0-3) Neutrophils # (Auto) 4.0 x10^3/uL (1.8-7.7) Lymphocytes # (Auto) 1.2 x10^3/uL (1.0-4.8) Monocytes # (Auto) 0.4 x10^3/uL (0.0-1.1) Eosinophils # (Auto) 0.1 x10^3/uL (0.0-0.7) Basophils # (Auto) 0.1 x10^3/uL (0.0-0.2) Sodium Level 136 mmol/L (136-145) Potassium Level 4.8 mmol/L (3.5-5.1) Chloride Level 103 mmol/L (98-107) Carbon Dioxide Level 24 mmol/L (21-32) Anion Gap 9 (6-14) Blood Urea Nitrogen 39 mg/dL (7-20) Creatinine 1.2 mg/dL (0.6-1.0) Estimated GFR (Cockcroft-Gault) 44.7 BUN/Creatinine Ratio 33 (6-20) Glucose Level 162 mg/dL (70-99) Calcium Level 8.8 mg/dL (8.5-10.1) Total Bilirubin 0.3 mg/dL (0.2-1.0) Aspartate Amino Transf (AST/SGOT) 16 U/L (15-37) Alanine Aminotransferase (ALT/SGPT) 19 U/L (14-59) Alkaline Phosphatase 69 U/L (46-116) Total Protein 7.3 g/dL (6.4-8.2) Albumin 3.2 g/dL (3.4-5.0) Albumin/Globulin Ratio 0.8 (1.0-1.7) Thyroid Stimulating Hormone (TSH) 2.326 uIU/mL (0.358-3.74) Laboratory Tests Test 04/15/20 11:46 04/15/20 14:20 04/15/20 16:20 04/15/20 16:59 Lactic Acid Level 1.4 mmol/L (0.4-2.0) Troponin I Quantitative < 0.017 ng/mL (0.000-0.055) < 0.017 ng/mL (0.000-0.055) Glucose (Fingerstick) 94 mg/dL (70-99) Test 04/15/20 17:16 04/15/20 21:08 04/16/20 09:47 Urine Collection Type Unknown Urine Color Yellow Urine Clarity Cloudy Urine pH 5.5 (<5.0-8.0) Urine Specific [place] 1.020 (1.000-1.030) Urine Protein Negative mg/dL (NEG-TRACE) Urine Glucose (UA) Negative mg/dL (NEG) Urine Ketones (Stick) Negative mg/dL (NEG) Urine Blood Negative (NEG) Urine Nitrite Negative (NEG) Urine Bilirubin Negative (NEG) Urine Urobilinogen Dipstick 0.2 mg/dL (0.2 mg/dL) Urine Leukocyte Esterase Small (NEG) Urine RBC 0 /HPF (0-2) Urine WBC 11-20 /HPF (0-4) Urine Squamous Epithelial Cells Few /LPF Urine Bacteria Few /HPF (0-FEW) Urine Hyaline Casts Few /HPF Urine Mucus Slight /LPF Glucose (Fingerstick) 129 mg/dL (70-99) White Blood Count 5.7 x10^3/uL (4.0-11.0) Red Blood Count 3.78 x10^6/uL (3.50-5.40) Hemoglobin 10.3 g/dL (12.0-15.5) Hematocrit 31.7 % (36.0-47.0) Mean Corpuscular Volume 84 fL (79-100) Mean Corpuscular Hemoglobin 27 pg (25-35) Mean Corpuscular Hemoglobin Concent 33 g/dL (31-37) Red Cell Distribution Width 20.2 % (11.5-14.5) Platelet Count 246 x10^3/uL (140-400) Neutrophils (%) (Auto) 70 % (31-73) Lymphocytes (%) (Auto) 20 % (24-48) Monocytes (%) (Auto) 7 % (0-9) Eosinophils (%) (Auto) 2 % (0-3) Basophils (%) (Auto) 1 % (0-3) Neutrophils # (Auto) 4.0 x10^3/uL (1.8-7.7) Lymphocytes # (Auto) 1.2 x10^3/uL (1.0-4.8) Monocytes # (Auto) 0.4 x10^3/uL (0.0-1.1) Eosinophils # (Auto) 0.1 x10^3/uL (0.0-0.7) Basophils # (Auto) 0.1 x10^3/uL (0.0-0.2) Sodium Level 136 mmol/L (136-145) Potassium Level 4.8 mmol/L (3.5-5.1) Chloride Level 103 mmol/L (98-107) Carbon Dioxide Level 24 mmol/L (21-32) Anion Gap 9 (6-14) Blood Urea Nitrogen 39 mg/dL (7-20) Creatinine 1.2 mg/dL (0.6-1.0) Estimated GFR (Cockcroft-Gault) 44.7 BUN/Creatinine Ratio 33 (6-20) Glucose Level 162 mg/dL (70-99) Calcium Level 8.8 mg/dL (8.5-10.1) Total Bilirubin 0.3 mg/dL (0.2-1.0) Aspartate Amino Transf (AST/SGOT) 16 U/L (15-37) Alanine Aminotransferase (ALT/SGPT) 19 U/L (14-59) Alkaline Phosphatase 69 U/L (46-116) Total Protein 7.3 g/dL (6.4-8.2) Albumin 3.2 g/dL (3.4-5.0) Albumin/Globulin Ratio 0.8 (1.0-1.7) Thyroid Stimulating Hormone (TSH) 2.326 uIU/mL (0.358-3.74) Review All relevant outside records, renal labs, imaging studies, telemetry/EKG's were reviewed. MARIANN TORREZ MD Apr 16, 2020 11:31
[2020-04-16] MEDS ORDERED: CALCIUM CARBONATE 500 MG TAB.CHEW PO PRN (12:45)
[2020-04-16] MEDS: IV NORMAL SALINE 1000ML BAG 1,000 ML IV SCH ×2 (13:07→23:05)
[2020-04-16 15:00] VITALS: BP 98/50
--- NOTE | 2020-04-16 15:14 | NUR ---
SW following for discharge planning. Spoke with RN and reviewed chart. SW consulted for high risk readmission. Pt from home alone. Pt has had 2 falls at home. Pt uses a wc. PT/OT recommendation is for SNU. SW met with pt. Pt adamantly refusing SNU. Pt on room air, IV fluids, renal diet. Pt agreeable to HH and stated she would like HH with [facility] on discharge. Referral faxed to [facility]. Patient choice of vendor form completed. Pt has Medicaid. SW provided education on HCBS and pt plans to contact [employer] to request services. SW following.
[2020-04-16] MEDS ORDERED: AMLO-187 PO (15:43)
--- NOTE | 2020-04-16 17:35 | PDOC ---
PROGRESS NOTES Date of Service: DATE: 04/16/20 TIME: 17:30 Chief Complaint Chief Complaint History of essential hypertension on beta-blockers Diabetes mellitus type 2 Metabolic acidosis present on admission Hyperkalemia POA- K 6.8 Hyponatremia Weakness MANUELA etiology undetermined at the present time but given his chronic diastolic CHF and his bradycardia may have a component of prerenal azotemia Sinus bradycardia most likely secondary to beta-blockade Physical debility History of hypothyroidism Plan We will stop beta-blockers Follow recommendations from cardiology as follows: Recommendations TSH Avoid AV danni blocking agents Hold lisinopril, lasix with MANUELA IVFs Avoid nephrotoxin Echo to assess LV systolic function Follow recommendations from nephrology Reassess in the a.m. hopefully discharge after physical therapy evaluation to determine whether she will be able to transition back home given the history of fall and weakness No focal neurological deficit Greater than 45 minutes were spent in the assessment with patient coordination of care and elaboration of plan of care for today History of Present Illness History of Present Illness History of Present Illness Patient 69-year-old female who presents to the ER for evaluation after fall earlier today. Patient also had a fall yesterday, for which she required EMS lift assist. She states her fall was secondary to right lower extremity weakness. She denies any head trauma. Since the time of her fall today she began complaining of left hip pain, 10/10, aggravated by movement. She denies any chest pain, shortness of breath, cough, or fever. Upon evaluation in ER she was noted to have potassium of 6.8, sodium 128, BUN 68, creatinine 2.1. Will admit patient for further medical management with nephrology consult. 04/16: Patient feeling much better compared to yesterday. She has not worked with physical therapy at the present time and I have encouraged her to wait for them in order to avoid an undesirable fall. Her heart rate has certainly improved after atropine was administered on route. Review of her medications showed that the patient has been on beta-blockers and high doses of labetalol with 200 mg twice daily. I have stopped this and hopefully her bradycardia will not recur. We will follow recommendations from treasury consultant Vitals Vitals Vital Signs Date Time Temp Pulse Resp B/P (MAP) Pulse Ox O2 Delivery O2 Flow Rate FiO2 04/16/20 15:00 98.6 84 16 98/50 (66) 93 Room Air 98.6 Physical Exam General: Alert, Oriented X3, Cooperative, No acute distress Heart: Regular rate (SR with PVC's ) Abdomen: Soft, Other (obese ) Extremities: Other (trace bilateral LE edema ) Labs LABS Laboratory Tests Test 04/15/20 21:08 04/16/20 09:47 04/16/20 11:45 04/16/20 16:52 Glucose (Fingerstick) 129 mg/dL (70-99) 135 mg/dL (70-99) 103 mg/dL (70-99) White Blood Count 5.7 x10^3/uL (4.0-11.0) Red Blood Count 3.78 x10^6/uL (3.50-5.40) Hemoglobin 10.3 g/dL (12.0-15.5) Hematocrit 31.7 % (36.0-47.0) Mean Corpuscular Volume 84 fL (79-100) Mean Corpuscular Hemoglobin 27 pg (25-35) Mean Corpuscular Hemoglobin Concent 33 g/dL (31-37) Red Cell Distribution Width 20.2 % (11.5-14.5) Platelet Count 246 x10^3/uL (140-400) Neutrophils (%) (Auto) 70 % (31-73) Lymphocytes (%) (Auto) 20 % (24-48) Monocytes (%) (Auto) 7 % (0-9) Eosinophils (%) (Auto) 2 % (0-3) Basophils (%) (Auto) 1 % (0-3) Neutrophils # (Auto) 4.0 x10^3/uL (1.8-7.7) Lymphocytes # (Auto) 1.2 x10^3/uL (1.0-4.8) Monocytes # (Auto) 0.4 x10^3/uL (0.0-1.1) Eosinophils # (Auto) 0.1 x10^3/uL (0.0-0.7) Basophils # (Auto) 0.1 x10^3/uL (0.0-0.2) Sodium Level 136 mmol/L (136-145) Potassium Level 4.8 mmol/L (3.5-5.1) Chloride Level 103 mmol/L (98-107) Carbon Dioxide Level 24 mmol/L (21-32) Anion Gap 9 (6-14) Blood Urea Nitrogen 39 mg/dL (7-20) Creatinine 1.2 mg/dL (0.6-1.0) Estimated GFR (Cockcroft-Gault) 44.7 BUN/Creatinine Ratio 33 (6-20) Glucose Level 162 mg/dL (70-99) Calcium Level 8.8 mg/dL (8.5-10.1) Total Bilirubin 0.3 mg/dL (0.2-1.0) Aspartate Amino Transf (AST/SGOT) 16 U/L (15-37) Alanine Aminotransferase (ALT/SGPT) 19 U/L (14-59) Alkaline Phosphatase 69 U/L (46-116) Creatine Kinase 219 U/L (26-192) Total Protein 7.3 g/dL (6.4-8.2) Albumin 3.2 g/dL (3.4-5.0) Albumin/Globulin Ratio 0.8 (1.0-1.7) Thyroid Stimulating Hormone (TSH) 2.326 uIU/mL (0.358-3.74) Review of Systems Review of Systems Review of systems pertinent as per HPI otherwise 14 point review of system is negative Assessment and Plan Assessmemt and Plan Problems Medical Problems: (1) Generalized weakness Status: Acute (2) Hip pain, bilateral Status: Acute (3) Hyperkalemia Status: Acute Comment Review of Relevant I have reviewed the following items clare (where applicable) has been applied. Labs Laboratory Tests Test 04/15/20 10:39 04/15/20 11:46 04/15/20 14:20 04/15/20 16:20 White Blood Count 11.2 x10^3/uL (4.0-11.0) Red Blood Count 3.91 x10^6/uL (3.50-5.40) Hemoglobin 10.2 g/dL (12.0-15.5) Hematocrit 33.1 % (36.0-47.0) Mean Corpuscular Volume 85 fL (79-100) Mean Corpuscular Hemoglobin 26 pg (25-35) Mean Corpuscular Hemoglobin Concent 31 g/dL (31-37) Red Cell Distribution Width 20.4 % (11.5-14.5) Platelet Count 284 x10^3/uL (140-400) Neutrophils (%) (Auto) 89 % (31-73) Lymphocytes (%) (Auto) 6 % (24-48) Monocytes (%) (Auto) 4 % (0-9) Eosinophils (%) (Auto) 0 % (0-3) Basophils (%) (Auto) 0 % (0-3) Neutrophils # (Auto) 10.0 x10^3/uL (1.8-7.7) Lymphocytes # (Auto) 0.7 x10^3/uL (1.0-4.8) Monocytes # (Auto) 0.5 x10^3/uL (0.0-1.1) Eosinophils # (Auto) 0.0 x10^3/uL (0.0-0.7) Basophils # (Auto) 0.0 x10^3/uL (0.0-0.2) Segmented Neutrophils % 89 % (35-66) Lymphocytes % 6 % (24-48) Monocytes % 5 % (0-10) Platelet Estimate Adequate (ADEQUATE) Anisocytosis Slight Target Cells Occ Tear Drop Cells Occ Ovalocytes Few Sodium Level 128 mmol/L (136-145) Potassium Level 6.8 mmol/L (3.5-5.1) Chloride Level 98 mmol/L (98-107) Carbon Dioxide Level 19 mmol/L (21-32) Anion Gap 11 (6-14) Blood Urea Nitrogen 68 mg/dL (7-20) Creatinine 2.1 mg/dL (0.6-1.0) Estimated GFR (Cockcroft-Gault) 23.4 BUN/Creatinine Ratio 32 (6-20) Glucose Level 130 mg/dL (70-99) Calcium Level 8.8 mg/dL (8.5-10.1) Magnesium Level 2.6 mg/dL (1.8-2.4) Total Bilirubin 0.3 mg/dL (0.2-1.0) Aspartate Amino Transf (AST/SGOT) 16 U/L (15-37) Alanine Aminotransferase (ALT/SGPT) 20 U/L (14-59) Alkaline Phosphatase 67 U/L (46-116) Creatine Kinase 209 U/L (26-192) Creatine Kinase MB (Mass) 4.0 ng/mL (0.0-3.6) Creatine Kinase MB Relative Index 1.9 % (0-4) Troponin I Quantitative < 0.017 ng/mL (0.000-0.055) < 0.017 ng/mL (0.000-0.055) < 0.017 ng/mL (0.000-0.055) Total Protein 7.6 g/dL (6.4-8.2) Albumin 3.8 g/dL (3.4-5.0) Albumin/Globulin Ratio 1.0 (1.0-1.7) Lactic Acid Level 1.4 mmol/L (0.4-2.0) Test 04/15/20 16:59 04/15/20 17:16 04/15/20 21:08 04/16/20 09:47 Glucose (Fingerstick) 94 mg/dL (70-99) 129 mg/dL (70-99) Urine Collection Type Unknown Urine Color Yellow Urine Clarity Cloudy Urine pH 5.5 (<5.0-8.0) Urine Specific Simms 1.020 (1.000-1.030) Urine Protein Negative mg/dL (NEG-TRACE) Urine Glucose (UA) Negative mg/dL (NEG) Urine Ketones (Stick) Negative mg/dL (NEG) Urine Blood Negative (NEG) Urine Nitrite Negative (NEG) Urine Bilirubin Negative (NEG) Urine Urobilinogen Dipstick 0.2 mg/dL (0.2 mg/dL) Urine Leukocyte Esterase Small (NEG) Urine RBC 0 /HPF (0-2) Urine WBC 11-20 /HPF (0-4) Urine Squamous Epithelial Cells Few /LPF Urine Bacteria Few /HPF (0-FEW) Urine Hyaline Casts Few /HPF Urine Mucus Slight /LPF White Blood Count 5.7 x10^3/uL (4.0-11.0) Red Blood Count 3.78 x10^6/uL (3.50-5.40) Hemoglobin 10.3 g/dL (12.0-15.5) Hematocrit 31.7 % (36.0-47.0) Mean Corpuscular Volume 84 fL (79-100) Mean Corpuscular Hemoglobin 27 pg (25-35) Mean Corpuscular Hemoglobin Concent 33 g/dL (31-37) Red Cell Distribution Width 20.2 % (11.5-14.5) Platelet Count 246 x10^3/uL (140-400) Neutrophils (%) (Auto) 70 % (31-73) Lymphocytes (%) (Auto) 20 % (24-48) Monocytes (%) (Auto) 7 % (0-9) Eosinophils (%) (Auto) 2 % (0-3) Basophils (%) (Auto) 1 % (0-3) Neutrophils # (Auto) 4.0 x10^3/uL (1.8-7.7) Lymphocytes # (Auto) 1.2 x10^3/uL (1.0-4.8) Monocytes # (Auto) 0.4 x10^3/uL (0.0-1.1) Eosinophils # (Auto) 0.1 x10^3/uL (0.0-0.7) Basophils # (Auto) 0.1 x10^3/uL (0.0-0.2) Sodium Level 136 mmol/L (136-145) Potassium Level 4.8 mmol/L (3.5-5.1) Chloride Level 103 mmol/L (98-107) Carbon Dioxide Level 24 mmol/L (21-32) Anion Gap 9 (6-14) Blood Urea Nitrogen 39 mg/dL (7-20) Creatinine 1.2 mg/dL (0.6-1.0) Estimated GFR (Cockcroft-Gault) 44.7 BUN/Creatinine Ratio 33 (6-20) Glucose Level 162 mg/dL (70-99) Calcium Level 8.8 mg/dL (8.5-10.1) Total Bilirubin 0.3 mg/dL (0.2-1.0) Aspartate Amino Transf (AST/SGOT) 16 U/L (15-37) Alanine Aminotransferase (ALT/SGPT) 19 U/L (14-59) Alkaline Phosphatase 69 U/L (46-116) Creatine Kinase 219 U/L (26-192) Total Protein 7.3 g/dL (6.4-8.2) Albumin 3.2 g/dL (3.4-5.0) Albumin/Globulin Ratio 0.8 (1.0-1.7) Thyroid Stimulating Hormone (TSH) 2.326 uIU/mL (0.358-3.74) Test 04/16/20 11:45 04/16/20 16:52 Glucose (Fingerstick) 135 mg/dL (70-99) 103 mg/dL (70-99) Laboratory Tests Test 04/15/20 21:08 04/16/20 09:47 04/16/20 11:45 04/16/20 16:52 Glucose (Fingerstick) 129 mg/dL (70-99) 135 mg/dL (70-99) 103 mg/dL (70-99) White Blood Count 5.7 x10^3/uL (4.0-11.0) Red Blood Count 3.78 x10^6/uL (3.50-5.40) Hemoglobin 10.3 g/dL (12.0-15.5) Hematocrit 31.7 % (36.0-47.0) Mean Corpuscular Volume 84 fL (79-100) Mean Corpuscular Hemoglobin 27 pg (25-35) Mean Corpuscular Hemoglobin Concent 33 g/dL (31-37) Red Cell Distribution Width 20.2 % (11.5-14.5) Platelet Count 246 x10^3/uL (140-400) Neutrophils (%) (Auto) 70 % (31-73) Lymphocytes (%) (Auto) 20 % (24-48) Monocytes (%) (Auto) 7 % (0-9) Eosinophils (%) (Auto) 2 % (0-3) Basophils (%) (Auto) 1 % (0-3) Neutrophils # (Auto) 4.0 x10^3/uL (1.8-7.7) Lymphocytes # (Auto) 1.2 x10^3/uL (1.0-4.8) Monocytes # (Auto) 0.4 x10^3/uL (0.0-1.1) Eosinophils # (Auto) 0.1 x10^3/uL (0.0-0.7) Basophils # (Auto) 0.1 x10^3/uL (0.0-0.2) Sodium Level 136 mmol/L (136-145) Potassium Level 4.8 mmol/L (3.5-5.1) Chloride Level 103 mmol/L (98-107) Carbon Dioxide Level 24 mmol/L (21-32) Anion Gap 9 (6-14) Blood Urea Nitrogen 39 mg/dL (7-20) Creatinine 1.2 mg/dL (0.6-1.0) Estimated GFR (Cockcroft-Gault) 44.7 BUN/Creatinine Ratio 33 (6-20) Glucose Level 162 mg/dL (70-99) Calcium Level 8.8 mg/dL (8.5-10.1) Total Bilirubin 0.3 mg/dL (0.2-1.0) Aspartate Amino Transf (AST/SGOT) 16 U/L (15-37) Alanine Aminotransferase (ALT/SGPT) 19 U/L (14-59) Alkaline Phosphatase 69 U/L (46-116) Creatine Kinase 219 U/L (26-192) Total Protein 7.3 g/dL (6.4-8.2) Albumin 3.2 g/dL (3.4-5.0) Albumin/Globulin Ratio 0.8 (1.0-1.7) Thyroid Stimulating Hormone (TSH) 2.326 uIU/mL (0.358-3.74) Medications Current Medications Calcium Gluconate (Calcium Gluconate) 1,000 mg 1X ONCE IVP Last administered on 04/15/20at 11:50; Start 04/15/20 at 11:15; Stop 04/15/20 at 11:18; Status DC Dextrose (Dextrose 50%-Water Syringe) 25 gm 1X ONCE IV Last administered on 04/15/20at 11:52; Start 04/15/20 at 11:15; Stop 04/15/20 at 11:18; Status DC Insulin Human Regular (HumuLIN R VIAL) 10 unit 1X ONCE IV Last administered on 04/15/20at 11:51; Start 04/15/20 at 11:15; Stop 04/15/20 at 11:18; Status DC Albuterol Sulfate (Ventolin Neb Soln) 10 mg 1X ONCE CONT NEB Last administered on 04/15/20at 12:00; Start 04/15/20 at 11:15; Stop 04/15/20 at 11:18; Status DC Furosemide (Lasix) 40 mg 1X ONCE IVP ; Start 04/15/20 at 13:00; Stop 04/15/20 at 13:01; Status DC Ondansetron HCl (Zofran) 4 mg PRN Q8HRS PRN IV NAUSEA/VOMITING; Start 04/15/20 at 12:15; Stop 04/16/20 at 12:14; Status DC Insulin Human Lispro (HumaLOG) 0-5 UNITS TIDWMEALS SQ ; Start 04/15/20 at 17:00 Dextrose (Dextrose 50%-Water Syringe) 12.5 gm PRN Q15MIN PRN IV SEE COMMENTS; Start 04/15/20 at 12:15 Sodium Chloride 500 ml @ 500 mls/hr 1X ONCE IV Last administered on 04/15/20at 15:23; Start 04/15/20 at 15:00; Stop 04/15/20 at 16:03; Status DC Tramadol HCl (Ultram) 50 mg PRN Q6HRS PRN PO MILD TO MODERATE PAIN; Start 04/15/20 at 15:45 Acetaminophen/ Hydrocodone Bitart (Lortab 5/325) 1 tab PRN Q4HRS PRN PO SEVERE PAIN Last administered on 04/16/20at 06:02; Start 04/15/20 at 16:00 Sodium Chloride 1,000 ml @ 75 mls/hr [id number] IV Last administered on 04/16/20at 13:07; Start 04/16/20 at 09:45 Calcium Carbonate/ Glycine (Tums) 500 mg PRN AFTMEALHC PRN PO INDIGESTION Last administered on 04/16/20at 13:07; Start 04/16/20 at 12:45 Active Scripts Active Reported Amlodipine Besylate 10 Mg Tablet 10 Mg PO DAILY Vitals/I & O Vital Sign - Last 24 Hours 04/15/20 04/15/20 04/15/20 04/15/20 17:55 19:00 19:50 23:00 Temp 99.1 98.8 99.1 98.8 Pulse 72 85 Resp 20 20 B/P (MAP) 103/37 (59) 115/51 (72) Pulse Ox 94 95 O2 Delivery Room Air Room Air 04/16/20 04/16/20 04/16/20 04/16/20 03:00 06:02 07:00 07:11 Temp 98.7 98.7 98.7 98.7 Pulse 79 54 Resp 18 16 B/P (MAP) 128/55 (79) 111/50 (70) Pulse Ox 95 95 O2 Delivery Room Air Room Air Room Air 04/16/20 04/16/20 04/16/20 08:00 11:00 15:00 Temp 98.6 98.6 98.6 98.6 Pulse 74 84 Resp 18 16 B/P (MAP) 104/50 (68) 98/50 (66) Pulse Ox 96 93 O2 Delivery Room Air Room Air Room Air Intake and Output 04/15/20 04/15/20 04/16/20 15:00 23:00 07:00 Intake Total 200 ml 240 ml Balance 200 ml 240 ml Justicifation of Admission Dx: Justifications for Admission: Justification of Admission Dx: Yes CHF: Cardiac Arrhythmias TIM TAVARES MD Apr 16, 2020 17:35
[2020-04-16] MEDS ORDERED: ATOR40TA59 PO (17:39)
[2020-04-16] MEDS ORDERED: LISI10TA16 PO (17:39)
[2020-04-16] MEDS ORDERED: GABA-689 PO (17:39)
[2020-04-16] MEDS ORDERED: OMEP40CA7 PO (17:39)
[2020-04-16] MEDS ORDERED: LAMO100T5 PO (17:39)
[2020-04-16] MEDS ORDERED: RIVA10TA PO (17:39)
[2020-04-16] MEDS ORDERED: SPIR50TA4 PO (17:39)
[2020-04-16] MEDS ORDERED: DOCU100C28 PO (17:39)
[2020-04-16] MEDS ORDERED: ROPI5TAB4 PO (17:39)
[2020-04-16] MEDS ORDERED: FURO20TA3 PO (17:39)
[2020-04-16 19:00] VITALS: BP 136/77
[2020-04-16 23:00] VITALS: BP 147/60
--- NOTE | 2020-04-16 23:30 | NUR ---
Relief Charge Nurse, Sylvia RN attempted to restart IV Saline Lock x2 attempt unsuccessful, other staffing program manager, Ida went in to attempt Patient refused and stated, "No! do not stick me again, I do not want to be stuck anymore!"
[2020-04-17 03:00] VITALS: BP 129/57
[2020-04-17 07:00] VITALS: BP 138/82
[2020-04-17] MEDS: INSULIN LISPRO 300 UNITS/3 ML VIAL. SQ SCH ×2 (07:41→11:49)
[2020-04-17 07:57] LABS: CALCIUM 9.1 mg/dL (8.5-10.1); CREATININE 0.9 mg/dL (0.6-1.0); GFR 62.3; POTASSIUM 5.4 mmol/L (3.5-5.1)
--- NOTE | 2020-04-17 09:31 | PDOC ---
DATE OF SERVICE DATE: 04/17/20 TIME: 09:28 SUBJECTIVE ROS stable, No new concerns voiced OBJECTIVE Vital Signs Vital Signs Date Time Temp Pulse Resp B/P (MAP) Pulse Ox O2 Delivery O2 Flow Rate FiO2 04/17/20 08:00 Room Air 04/17/20 07:00 98.6 69 18 138/82 (100) 97 98.6 I & 0 Intake and Output 04/17/20 06:59 Intake Total 880 ml Output Total 450 ml Balance 430 ml Intake Oral 880 ml Output Urine Total 450 ml # Voids 5 # Bowel Movements 3 PHYSICAL EXAM Physical Exam Gen- NAD, HEEN OM moist Neck supple Lungs CTA, Non labored CV RRR Abd Soft, NT, obese Neuro AXOx3 , grossly normal No Joy Skin No Rash Ext No LE edema DIAGNOSIS/ASSESSMENT Assessment & Plan MANUELA - Vasomotor , resolved per patient Dx of CKD2 @ [facility] few years back , UA WBC +, No nitrites, pt asymptomatic No labs ordered this am, ordered stat - improving renal function , recd IVF bolus Supportive care, I/O, avoid nephrotoxins HyperKalemia- POA- K 6.8 , temporizing measures in Er, Bradycardia at presentation . Pt denies taking K supplements . Med list available- she is on Aldactone and Lisinopril at home K mildly elevated , Kayexalate x 1. Hold above meds at ct , recommned re- evaluate to restart meds per pts PCP or /Cardiology HypoNatremia- resolved Metabolic acidosis POA - resolved Right LE weaknes, pain with subsequent fall Chronic diastolic CHF- Echo today Hypertension BP low at presentation - Home med list not available in the chart Diabetes, II Hypothyroidism; check TSH Weakness/ Fall - per primary COMMENT/RELEVANT DATA Meds Current Medications Medications (Trade) Dose Ordered Sig/Cici Start Time Stop Time Status Last Admin Dose Admin Acetaminophen/ Hydrocodone Bitart (Lortab 5/325) 1 tab PRN Q4HRS PRN 04/15/20 16:00 04/16/20 06:02 1 TAB Albuterol Sulfate (Ventolin Neb Soln) 10 mg 1X ONCE 04/15/20 11:15 04/15/20 11:18 DC 04/15/20 12:00 10 MG Calcium Carbonate/ Glycine (Tums) 500 mg PRN AFTMEALHC PRN 04/16/20 12:45 04/16/20 13:07 500 MG Calcium Gluconate (Calcium Gluconate) 1,000 mg 1X ONCE 04/15/20 11:15 04/15/20 11:18 DC 04/15/20 11:50 1,000 MG Dextrose (Dextrose 50%-Water Syringe) 12.5 gm PRN Q15MIN PRN 04/15/20 12:15 Furosemide (Lasix) 40 mg 1X ONCE 04/15/20 13:00 04/15/20 13:01 DC Insulin Human Lispro (HumaLOG) 0-5 UNITS TIDWMEALS 04/15/20 17:00 Insulin Human Regular (HumuLIN R VIAL) 10 unit 1X ONCE 04/15/20 11:15 04/15/20 11:18 DC 04/15/20 11:51 10 UNIT Ondansetron HCl (Zofran) 4 mg PRN Q8HRS PRN 04/15/20 12:15 04/16/20 12:14 DC Sodium Chloride 1,000 ml @ 75 mls/hr [id number] 04/16/20 09:45 04/16/20 13:07 75 MLS/HR Tramadol HCl (Ultram) 50 mg PRN Q6HRS PRN 04/15/20 15:45 Lab Laboratory Tests Test 04/16/20 09:47 04/16/20 11:45 04/16/20 16:52 04/16/20 21:03 White Blood Count 5.7 x10^3/uL (4.0-11.0) Red Blood Count 3.78 x10^6/uL (3.50-5.40) Hemoglobin 10.3 g/dL (12.0-15.5) Hematocrit 31.7 % (36.0-47.0) Mean Corpuscular Volume 84 fL (79-100) Mean Corpuscular Hemoglobin 27 pg (25-35) Mean Corpuscular Hemoglobin Concent 33 g/dL (31-37) Red Cell Distribution Width 20.2 % (11.5-14.5) Platelet Count 246 x10^3/uL (140-400) Neutrophils (%) (Auto) 70 % (31-73) Lymphocytes (%) (Auto) 20 % (24-48) Monocytes (%) (Auto) 7 % (0-9) Eosinophils (%) (Auto) 2 % (0-3) Basophils (%) (Auto) 1 % (0-3) Neutrophils # (Auto) 4.0 x10^3/uL (1.8-7.7) Lymphocytes # (Auto) 1.2 x10^3/uL (1.0-4.8) Monocytes # (Auto) 0.4 x10^3/uL (0.0-1.1) Eosinophils # (Auto) 0.1 x10^3/uL (0.0-0.7) Basophils # (Auto) 0.1 x10^3/uL (0.0-0.2) Sodium Level 136 mmol/L (136-145) Potassium Level 4.8 mmol/L (3.5-5.1) Chloride Level 103 mmol/L (98-107) Carbon Dioxide Level 24 mmol/L (21-32) Anion Gap 9 (6-14) Blood Urea Nitrogen 39 mg/dL (7-20) Creatinine 1.2 mg/dL (0.6-1.0) Estimated GFR (Cockcroft-Gault) 44.7 BUN/Creatinine Ratio 33 (6-20) Glucose Level 162 mg/dL (70-99) Calcium Level 8.8 mg/dL (8.5-10.1) Total Bilirubin 0.3 mg/dL (0.2-1.0) Aspartate Amino Transf (AST/SGOT) 16 U/L (15-37) Alanine Aminotransferase (ALT/SGPT) 19 U/L (14-59) Alkaline Phosphatase 69 U/L (46-116) Creatine Kinase 219 U/L (26-192) Total Protein 7.3 g/dL (6.4-8.2) Albumin 3.2 g/dL (3.4-5.0) Albumin/Globulin Ratio 0.8 (1.0-1.7) Thyroid Stimulating Hormone (TSH) 2.326 uIU/mL (0.358-3.74) Glucose (Fingerstick) 135 mg/dL (70-99) 103 mg/dL (70-99) 152 mg/dL (70-99) Test 04/17/20 06:55 04/17/20 07:36 Sodium Level 139 mmol/L (136-145) Potassium Level 5.4 mmol/L (3.5-5.1) Chloride Level 106 mmol/L (98-107) Carbon Dioxide Level 23 mmol/L (21-32) Anion Gap 10 (6-14) Blood Urea Nitrogen 34 mg/dL (7-20) Creatinine 0.9 mg/dL (0.6-1.0) Estimated GFR (Cockcroft-Gault) 62.3 Glucose Level 101 mg/dL (70-99) Calcium Level 9.1 mg/dL (8.5-10.1) Glucose (Fingerstick) 81 mg/dL (70-99) Results All relevant outside records, renal labs, imaging studies, telemetry/EKG's were reviewed. Justicifation of Admission Dx: Justifications for Admission: Justification of Admission Dx: Yes CHF: Cardiac Arrhythmias MARIANN TORREZ MD Apr 17, 2020 09:31
[2020-04-17 11:00] VITALS: BP 151/71
[2020-04-17] MEDS: IV NORMAL SALINE 1000ML BAG 1,000 ML IV SCH (12:06)
[2020-04-17] MEDS ORDERED: SODIUM POLYSTYRENE SULFON/SORB 15 GM/60 ML ORAL.SUSP. PO ONE (13:15)
--- NOTE | 2020-04-17 13:15 | NUR ---
SW following for discharge planning. Spoke with RN and reviewed chart. CHALO spoke with Lora from [facility] and confirmed initial referral was received. Pt accepted for HH care. Met with pt again today and pt continues to state she wants HH on discharge. Discharge orders were written for self-care discharge today, 04/17. CHALO requested HH orders from Dr. Renee. RN notified. CHALO following. Addendum: 04/17/20 at 1735 by JACINDA ISABEL HH orders obtained and faxed to [facility] for Lora to confirm they were received. No further CHALO needs at this time Addendum: 04/20/20 at 1219 by JACINDA ISABEL CHALO spoke with Lora from [facility] today, 04/20 and confirmed orders received and start of care. No further SW needs at this time.
--- NOTE | 2020-04-17 14:36 | SNU/HH DC ---
DISCHARGE WITH HOME HEALTH DISCHARGE INFORMATION: Discharge Date: Apr 17, 2020 Final Diagnosis: Problems Medical Problems: (1) Generalized weakness Status: Acute (2) Hip pain, bilateral Status: Acute (3) Hyperkalemia Status: Acute Condition on Discharge: Stable CODE STATUS: Code Status: Full HOME HEALTH: Face to Face: I certify this patient is under my care and that I, or a nurse practitioner or physician's audiology assistant working with me, had a face to face encounter that meets the physician face to face encounter requirements with this patient on []. Medical Complications: CHF Retirement For: Medication Management, Other: (BMP weekly) RN For Eval/Treatment: Yes Physical Therapy For: Evalulation/Treatment Pt Meets Homebound Status: Frequent falls w/ injury, Limited distance walking CERTIFICATION STATEMENT: Certification Statement: Certification Statement: Based on the above finding, I certify that this patient is confined to the home and needs intermittent jail care, physical therapy and/or speech therapy, or continues to need occupational therapy.~ This patient is under my care, and I have initiated the establishment of the plan of care.~ This patient will be followed by myself or a community physician who will periodically review the plan of care. Home Meds Reported Medications Lamotrigine (LAMICTAL) 100 Mg Tablet, 1 TAB PO DAILY for BIPOLAR , #30 TAB 1 Refill 04/16/20 Docusate Sodium (DOCUSATE SODIUM) 100 Mg Capsule, 2 CAP PO BID for constipation for 7 Days, #28 CAP 0 Refills 04/16/20 Rivaroxaban (XARELTO) 10 Mg Tablet, 1 TAB PO DAILY for AFIB for 7 Days, #7 TAB 0 Refills 04/16/20 Gabapentin (GABAPENTIN ) 400 Mg Capsule, 400 MG PO TID for NEUROGENIC PAIN, CAP 04/16/20 Ropinirole Hcl (ROPINIROLE HCL) 5 Mg Tablet, 5 MG PO TID for RESTLESS LEG SYNDROME, TAB 04/16/20 Furosemide (FUROSEMIDE) 20 Mg Tablet, 20 MG PO DAILY for DIURETIC , TAB 04/16/20 Omeprazole (OMEPRAZOLE) 40 Mg Capsule.dr, 40 MG PO DAILY for GERD, CAP 04/16/20 Atorvastatin Calcium (ATORVASTATIN CALCIUM) 40 Mg Tablet, 40 MG PO HS for FOR CHOLESTEROL, #30 TAB 0 Refills 04/16/20 Amlodipine Besylate (AMLODIPINE BESYLATE) 10 Mg Tablet, 10 MG PO DAILY for HTN, TAB 04/16/20 Discontinued Reported Medications Spironolactone (SPIRONOLACTONE) 50 Mg Tablet, 50 MG PO DAILY for DIURETIC , TAB 04/16/20 Lisinopril (LISINOPRIL) 10 Mg Tablet, 10 MG PO DAILY for FOR HYPERTENSION, #30 TAB 0 Refills 04/16/20 TIM TAVARES MD Apr 17, 2020 14:36
--- NOTE | 2020-04-17 14:54 | NUR ---
Discharge Note: PT DISCHARGED HOME WITH [facility]. PT LEFT FACILITY VIA PRIVATE VEHICLE AT 1455. PT STABLE AND ALERT UPON DISCHARGE. PT PIV WAS REMOVED 04/16/20. PT EDUCATED ABOUT DISCHARGE INSTRUCTIONS, DISCHARGE MEDICATIONS, DIET INSTRUCTIONS, AND FOLLOW-UP LAB AND CARE INSTRUCTIONS. PT VOICED NO CONCERNS AT THIS TIME. PT GIVEN DOSE OF KAYEXELATE PRIOR TO DISCHARGE FOR K+ LEVEL, AND EDUCATED ABOUT IMPORTANCE OF KEEPING UP WITH FOLLOW-UP CARE AND DIET. PT LEFT WITH ALL PERSONAL BELONGINGS PRIOR TO DISCHARGE. PRISCILLA GOLDBERG MONROE Discharge instructions and discharge home medications reviewed with Patient and a copy given. All questions have been answered and understanding verbalized.
--- NOTE | 2020-04-17 15:00 | PDOC ---
FAUZIA CHAPMAN COLLECTIONS TECHNICIAN 04/17/20 1500: CARDIO Progress Notes Date and Time Date of Service 04/17/2020 Time of Evaluation 1200 Subjective Subjective: No Chest Pain, No shortness of breath, No Palpitations, Other (transferring to chair with rehab) Vitals Vitals Vital Signs Date Time Temp Pulse Resp B/P (MAP) Pulse Ox O2 Delivery O2 Flow Rate FiO2 04/17/20 11:00 97.7 72 18 151/71 (97) 99 Room Air 97.7 Weight Weight [ ] Input and Output Intake and Output Intake and Output 04/17/20 07:00 Intake Total 880 ml Output Total 450 ml Balance 430 ml Intake Oral 880 ml Output Urine Total 450 ml # Voids 5 # Bowel Movements 3 Laboratory Labs Laboratory Tests Test 04/16/20 16:52 04/16/20 21:03 04/17/20 06:55 04/17/20 07:36 Glucose (Fingerstick) 103 mg/dL (70-99) 152 mg/dL (70-99) 81 mg/dL (70-99) Sodium Level 139 mmol/L (136-145) Potassium Level 5.4 mmol/L (3.5-5.1) Chloride Level 106 mmol/L (98-107) Carbon Dioxide Level 23 mmol/L (21-32) Anion Gap 10 (6-14) Blood Urea Nitrogen 34 mg/dL (7-20) Creatinine 0.9 mg/dL (0.6-1.0) Estimated GFR (Cockcroft-Gault) 62.3 Glucose Level 101 mg/dL (70-99) Calcium Level 9.1 mg/dL (8.5-10.1) Test 04/17/20 11:38 Glucose (Fingerstick) 111 mg/dL (70-99) Microbiology Micro Microbiology 04/15/20 Urine Culture - Final, Complete Physical Exam HEENT: Neck Supple W Full Motion Chest: Symmetric LUNGS: Other (diminished bases) Heart: RRR (SR/SB) Abdomen: Soft N/T, Other (obese) Extremities: No Edema, No Calf Tenderness Neurology: alert, oriented, follow commands Assessment Assessment 1. Right LE weakness, pain with subsequent fall 2. MANUELA on CKD with significant hyperkalemia. K 6.8 upon arrival. Now improved 3. Bradycardia; sinus with frequent PVC's. No significant pauses. HR improved with correction of lytes. 4. Chronic diastolic CHF; s/p CardioMEMS heart failure monitoring device. appears compensated. Follow with Dr. Daily with cardiology 5. H/o NICM; Most recent echo showed preserved LV systolic function with EF 55- 60% as noted above. 6. Hypertension; controlled 7. Diabetes, II 8. Hypothyroidism; TSH on goal. Recommendations 1. Still has SB episodes no pauses lowest in the 40s. Avoid AV danni blocking agents 2. May use norvasc if BP trends up again. Otherwise no lisinopril for now. She does follow up with [facility]. May resume lasix when OK with nephrology 3. Pt indicates that she may move to [place] with her boboe. Rehab recommends HH but pt is refusing 4. Awaiting TTE, otherwise may DC from cardiac standpoint. Justicifation of Admission Dx: Justifications for Admission: Justification of Admission Dx: Yes CHF: Cardiac Arrhythmias ZEINAB SOLORZANO MD 04/17/20 1558: CARDIO Progress Notes Assessment Assessment Patient seen and examined I agree with our nurse practitioners assessment and plan MANUELA on CKD with significant hyperkalemia. K 6.8 upon arrival. Now improved Bradycardia; sinus with frequent PVC's. No significant pauses. HR improved with correction of lytes. Chronic diastolic CHF; s/p CardioMEMS heart failure monitoring device. appears compensated. Follow with Dr. Daily with cardiology H/o NICM; Most recent echo showed preserved LV systolic function with EF 55-60% as noted above. Hypertension; controlled Diabetes, II Hypothyroidism; TSH on goal. FAUZIA CHAPMAN APRN Apr 17, 2020 15:00 ZEINAB SOLORZANO MD Apr 17, 2020 15:58
--- NOTE | 2020-04-17 18:14 | PDOC3 ---
Discharge Summary Visit Information Date of Admission: Apr 15, 2020 Date of Discharge: Apr 17, 2020 Admitting Diagnosis Comment: Hypokalemia Hyponatremia Weakness MANUELA Vasomotor nephropathy Sinus bradycardia Physical debility Final Diagnosis Problems Medical Problems: (1) Generalized weakness Status: Acute (2) Hip pain, bilateral Status: Acute (3) Hyperkalemia Status: Acute History of essential hypertension on beta-blockers Diabetes mellitus type 2 Metabolic acidosis present on admission Hyperkalemia POA- K 6.8 Hyponatremia Weakness MANUELA etiology undetermined at the present time but given his chronic diastolic CHF and his bradycardia may have a component of prerenal azotemia Sinus bradycardia most likely secondary to beta-blockade Physical debility History of hypothyroidism Brief Hospital Course Allergies Allergies Coded Allergies Type Severity Reaction Last Updated Verified vancomycin Adverse Reaction Intermediate fever 04/15/20 Yes Vital Signs Vital Signs Date Time Temp Pulse Resp B/P (MAP) Pulse Ox O2 Delivery O2 Flow Rate FiO2 04/17/20 11:00 97.7 72 18 151/71 (97) 99 Room Air 97.7 Lab Results Laboratory Tests Test 04/15/20 21:08 04/16/20 09:47 04/16/20 11:45 04/16/20 16:52 Glucose (Fingerstick) 129 mg/dL (70-99) 135 mg/dL (70-99) 103 mg/dL (70-99) White Blood Count 5.7 x10^3/uL (4.0-11.0) Red Blood Count 3.78 x10^6/uL (3.50-5.40) Hemoglobin 10.3 g/dL (12.0-15.5) Hematocrit 31.7 % (36.0-47.0) Mean Corpuscular Volume 84 fL (79-100) Mean Corpuscular Hemoglobin 27 pg (25-35) Mean Corpuscular Hemoglobin Concent 33 g/dL (31-37) Red Cell Distribution Width 20.2 % (11.5-14.5) Platelet Count 246 x10^3/uL (140-400) Neutrophils (%) (Auto) 70 % (31-73) Lymphocytes (%) (Auto) 20 % (24-48) Monocytes (%) (Auto) 7 % (0-9) Eosinophils (%) (Auto) 2 % (0-3) Basophils (%) (Auto) 1 % (0-3) Neutrophils # (Auto) 4.0 x10^3/uL (1.8-7.7) Lymphocytes # (Auto) 1.2 x10^3/uL (1.0-4.8) Monocytes # (Auto) 0.4 x10^3/uL (0.0-1.1) Eosinophils # (Auto) 0.1 x10^3/uL (0.0-0.7) Basophils # (Auto) 0.1 x10^3/uL (0.0-0.2) Sodium Level 136 mmol/L (136-145) Potassium Level 4.8 mmol/L (3.5-5.1) Chloride Level 103 mmol/L (98-107) Carbon Dioxide Level 24 mmol/L (21-32) Anion Gap 9 (6-14) Blood Urea Nitrogen 39 mg/dL (7-20) Creatinine 1.2 mg/dL (0.6-1.0) Estimated GFR (Cockcroft-Gault) 44.7 BUN/Creatinine Ratio 33 (6-20) Glucose Level 162 mg/dL (70-99) Calcium Level 8.8 mg/dL (8.5-10.1) Total Bilirubin 0.3 mg/dL (0.2-1.0) Aspartate Amino Transf (AST/SGOT) 16 U/L (15-37) Alanine Aminotransferase (ALT/SGPT) 19 U/L (14-59) Alkaline Phosphatase 69 U/L (46-116) Creatine Kinase 219 U/L (26-192) Total Protein 7.3 g/dL (6.4-8.2) Albumin 3.2 g/dL (3.4-5.0) Albumin/Globulin Ratio 0.8 (1.0-1.7) Thyroid Stimulating Hormone (TSH) 2.326 uIU/mL (0.358-3.74) Test 04/16/20 21:03 04/17/20 06:55 04/17/20 07:36 04/17/20 11:38 Glucose (Fingerstick) 152 mg/dL (70-99) 81 mg/dL (70-99) 111 mg/dL (70-99) Sodium Level 139 mmol/L (136-145) Potassium Level 5.4 mmol/L (3.5-5.1) Chloride Level 106 mmol/L (98-107) Carbon Dioxide Level 23 mmol/L (21-32) Anion Gap 10 (6-14) Blood Urea Nitrogen 34 mg/dL (7-20) Creatinine 0.9 mg/dL (0.6-1.0) Estimated GFR (Cockcroft-Gault) 62.3 Glucose Level 101 mg/dL (70-99) Calcium Level 9.1 mg/dL (8.5-10.1) Laboratory Tests Test 04/16/20 21:03 04/17/20 06:55 04/17/20 07:36 04/17/20 11:38 Glucose (Fingerstick) 152 mg/dL (70-99) 81 mg/dL (70-99) 111 mg/dL (70-99) Sodium Level 139 mmol/L (136-145) Potassium Level 5.4 mmol/L (3.5-5.1) Chloride Level 106 mmol/L (98-107) Carbon Dioxide Level 23 mmol/L (21-32) Anion Gap 10 (6-14) Blood Urea Nitrogen 34 mg/dL (7-20) Creatinine 0.9 mg/dL (0.6-1.0) Estimated GFR (Cockcroft-Gault) 62.3 Glucose Level 101 mg/dL (70-99) Calcium Level 9.1 mg/dL (8.5-10.1) Brief Hospital Course History of Present Illness Patient 69-year-old female who presents to the ER for evaluation after fall earlier today. Patient also had a fall yesterday, for which she required EMS lift assist. She states her fall was secondary to right lower extremity weakness. She denies any head trauma. Since the time of her fall today she began complaining of left hip pain, 10/10, aggravated by movement. She denies any chest pain, shortness of breath, cough, or fever. Upon evaluation in ER she was noted to have potassium of 6.8, sodium 128, BUN 68, creatinine 2.1. Will admit patient for further medical management with nephrology consult. 04/16: Patient feeling much better compared to yesterday. She has not worked with physical therapy at the present time and I have encouraged her to wait for them in order to avoid an undesirable fall. Her heart rate has certainly improved after atropine was administered on route. Review of her medications showed that the patient has been on beta-blockers and high doses of labetalol with 200 mg twice daily. I have stopped this and hopefully her bradycardia will not recur. We will follow recommendations from government operations consultant Recommendations TSH Avoid AV danni blocking agents Hold lisinopril, lasix with MANUELA IVFs Avoid nephrotoxin Echo to assess LV systolic function Nephrology managed services sales consultant has recommended stopping spironolactone and ALINA inhibitor in light of the bounce back of her potassium of 5.4. This was related to the patient prior to discharge, no other changes were made to her medications. She follows up with Dr. Daily with cardiology in her most recent echocardiogram showed a preserved LV systolic function with an EF of 55 to 60%. Her cardiomyopathy seems to be nonischemic in nature. Signs and symptoms of concern when to seek medical attention were discussed with the patient prior to discharge. All of her concerns were addressed to the best of my abilities and she was in good spirits to be discharged home she denies any chest pain palpitations or shortness of breath on date of discharge and overall she felt much improved after fluid resuscitation. From the nephrology standpoint of view patient was seen by our managed services sales consultant and deemed appropriate for discharge given the improvement in her renal function. Recommendations from nephrology are as follows HyperKalemia- POA- K 6.8 , temporizing measures in Er, Bradycardia at presentation . Pt denies taking K supplements . Med list available- she is on Aldactone and Lisinopril at home K mildly elevated , Kayexalate x 1. Hold above meds at dc , recommned re- evaluate to restart meds per pts PCP or /Cardiology Greater than 35 minutes were spent in the discharge process the patient counseling coordination of care and arrangements for a safe discharge Physical Exam Gen- NAD, HEEN OM moist Neck supple Lungs CTA, Non labored CV RRR Abd Soft, NT, obese Neuro AXOx3 , grossly normal No Joy Skin No Rash Ext No LE edema Discharge Information Condition at Discharge: Improved Follow Up: Weeks Disposition/Orders: D/C to Home w/ HH Scheduled Amlodipine Besylate (Amlodipine Besylate) 10 Mg Tablet, 10 MG PO DAILY for HTN, (Reported) Entered as Reported by: MARIELA CHAVIS on 04/16/201542 Last Taken: UNKNOWN on Unknown Date & Time Last Action: New Order on 04/16/201542 by MARIELA CHAVIS Atorvastatin Calcium (Atorvastatin Calcium) 40 Mg Tablet, 40 MG PO HS for FOR CHOLESTEROL, #30 Ref 0 (Reported) Entered as Reported by: MARIELA CHAVIS on 04/16/201738 Last Taken: UNKNOWN on Unknown Date & Time Last Action: New Order on 04/16/201738 by MARIELA CHAVIS Docusate Sodium (Docusate Sodium) 100 Mg Capsule, 2 CAP PO BID for constipation for 7 Days, #28 Ref 0 (Reported) Entered as Reported by: MARIELA CHAVIS on 04/16/201738 Last Taken: UNKNOWN on Unknown Date & Time Last Action: New Order on 04/16/201738 by MARIELA CHAVIS Furosemide (Furosemide) 20 Mg Tablet, 20 MG PO DAILY for DIURETIC , (Reported) Entered as Reported by: MARIELA CHAVIS on 04/16/201738 Last Taken: UNKNOWN on Unknown Date & Time Last Action: New Order on 04/16/201738 by MARIELA CHAVIS Gabapentin (Gabapentin ) 400 Mg Capsule, 400 MG PO TID for NEUROGENIC PAIN, (Reported) Entered as Reported by: MARIELA CHAVIS on 04/16/201738 Last Action: New Order on 04/16/201738 by MARIELA CHAVIS Lamotrigine (Lamictal) 100 Mg Tablet, 1 TAB PO DAILY for BIPOLAR , #30 Ref 1 (Reported) Entered as Reported by: MARIELA CHAVIS on 04/16/201738 Last Taken: UNKNOWN on Unknown Date & Time Last Action: New Order on 04/16/201738 by MARIELA CHAVIS Omeprazole (Omeprazole) 40 Mg Capsule.dr, 40 MG PO DAILY for GERD, (Reported) Entered as Reported by: MARIELA CHAVIS on 04/16/201738 Last Taken: UNKNOWN on Unknown Date & Time Last Action: New Order on 04/16/201738 by MARIELA CHAVIS Rivaroxaban (Xarelto) 10 Mg Tablet, 1 TAB PO DAILY for AFIB for 7 Days, #7 Ref 0 (Reported) Entered as Reported by: MARIELA CHAVIS on 04/16/201738 Last Taken: UNKNOWN on Unknown Date & Time Last Action: New Order on 04/16/201738 by MARIELA CHAVIS Ropinirole Hcl (Ropinirole Hcl) 5 Mg Tablet, 5 MG PO TID for RESTLESS LEG SYNDROME, (Reported) Entered as Reported by: MARIELA CHAVIS on 04/16/201738 Last Taken: UNKNOWN on Unknown Date & Time Last Action: New Order on 04/16/201738 by MARIELA CHAVIS Discontinued Medications Lisinopril (Lisinopril) 10 Mg Tablet, 10 MG PO DAILY for FOR HYPERTENSION, #30 Ref 0 (Reported) Entered as Reported by: MARIELA CHAVIS on 04/16/201738 Last Taken: UNKNOWN on Unknown Date & Time Last Action: New Order on 04/16/201738 by MARIELA CHAVIS Spironolactone (Spironolactone) 50 Mg Tablet, 50 MG PO DAILY for DIURETIC , (Reported) Entered as Reported by: MARIELA CHAVIS on 04/16/201738 Last Taken: UNKNOWN on Unknown Date & Time Last Action: New Order on 04/16/201738 by MARIELA CHAVIS Justicifation of Admission Dx: Justifications for Admission: Justification of Admission Dx: Yes CHF: Cardiac Arrhythmias TIM TAVARES MD Apr 17, 2020 18:14
--- NOTE | 2020-04-21 10:15 | CARD ---
MR#: [id number] Date of Study: 04/17/2020 Ordering Physician: ZACHARIAH LICEA, Referring Physician: ZACHARIAH LICEA, Tech: Sharron Skinner RD APPROVED REPORT EXAM: Two-dimensional and M-mode echocardiogram with Doppler and color Doppler. Other Information Quality : AverageHR: 76bpm Rhythm : NSR INDICATION Arrhythmia Congestive Heart Failure RISK FACTORS Hyperlipidemia 2D DIMENSIONS RVDd3.0 (2.9-3.5cm)Left Atrium(2D)4.2 (1.6-4.0cm) IVSd1.0 (0.7-1.1cm)Aortic Root(2D)2.7 (2.0-3.7cm) LVDd5.8 (3.9-5.9cm)LVOT Diameter2.1 (1.8-2.4cm) PWd1.0 (0.7-1.1cm)LVDs4.4 (2.5-4.0cm) FS (%) 23.9 %SV77.5 ml Aortic Valve AoV Peak Pop.137.7cm/sAoV VTI31.9cm AO Peak GR.7.6mmHgLVOT Peak Pop.110.4cm/s AO Mean GR.4mmHgAVA (VMAX)2.70cm2 Mitral Valve MV E Hzieeady98.1cm/sMV DECEL NRSV292la MV A Vfmraxot983.7cm/sE/A Ratio0.6 Pulmonary Valve PV Peak Xhitqajp801.2cm/s Pulmonary Vein S1 Yrubcycv25.0cm/sD2 Cexnroal94.9cm/s PVa [id number] LEFT VENTRICLE The left ventricle is normal size. There is normal left ventricular wall thickness. The left ventricu lar systolic function is normal and the ejection fraction is within normal range. LV ejection fractio n 55-60%. There is normal LV segmental wall motion. Transmitral Doppler flow pattern is Grade I-abnor mal relaxation pattern. RIGHT VENTRICLE The right ventricle is normal size. There is normal right ventricular wall thickness. The right ventr icular systolic function is normal. ATRIA The left atrium size is normal. The right atrium size is normal. The interatrial septum is intact wit h no evidence for an atrial septal defect or patent foramen ovale as noted on 2-D or Doppler imaging. AORTIC VALVE The aortic valve is normal in structure and function. Doppler and Color Flow revealed no significant aortic regurgitation. There is no significant aortic valvular stenosis. MITRAL VALVE The mitral valve is normal in structure and function. There is no evidence of mitral valve prolapse. There is no mitral valve stenosis. Doppler and Color Flow revealed no mitral valve regurgitation note d. TRICUSPID VALVE The tricuspid valve is normal in structure and function. Doppler and Color Flow revealed trace tricus pid valve regurgitation. There is no tricuspid valve prolapse or vegetation. PULMONIC VALVE The pulmonary valve is normal in structure and function. Doppler and Color Flow revealed no pulmonic valvular regurgitation. GREAT VESSELS The aortic root is normal in size. The ascending aorta is normal in size. The IVC was not visualized. PERICARDIAL EFFUSION There is no evidence of significant pericardial effusion. Critical Notification Critical Value: No <Conclusion> The left ventricle is normal size. The left ventricular systolic function is normal and the ejection fraction is within normal range. LV ejection fraction 55-60%. Doppler and Color Flow revealed no significant aortic regurgitation. There is no significant aortic valvular stenosis. Doppler and Color Flow revealed no mitral valve regurgitation noted. Doppler and Color Flow revealed trace tricuspid valve regurgitation. Signed by : Phu Day MD Electronically Approved : 04/17/2020 14:28:08
== END 2020-04-17 14:55 | disposition home health service (06) | DRG 640 ==
LOC: ER 10:27 → 5 NORTH 11:45
PROVIDERS: ADMIT Family Medicine; ATTEND Family Medicine
DX: E87.5 Hyperkalemia (principal); N17.0 Acute kidney failure with tubular necrosis; I13.0 Hypertensive heart and chronic kidney disease with heart failure and stage 1 through stage 4 chronic kidney disease, or unspecified chronic kidney disease; I42.8 Other cardiomyopathies; I50.32 Chronic diastolic (congestive) heart failure; Z68.41 Body mass index [BMI] 40.0-44.9, adult; E87.1 Hypo-osmolality and hyponatremia; E87.6 Hypokalemia; E03.9 Hypothyroidism, unspecified; E11.22 Type 2 diabetes mellitus with diabetic chronic kidney disease; E11.42 Type 2 diabetes mellitus with diabetic polyneuropathy; E11.51 Type 2 diabetes mellitus with diabetic peripheral angiopathy without gangrene; E66.9 Obesity, unspecified; G25.81 Restless legs syndrome; I25.10 Atherosclerotic heart disease of native coronary artery without angina pectoris; I49.3 Ventricular premature depolarization; J44.9 Chronic obstructive pulmonary disease, unspecified; M41.9 Scoliosis, unspecified; M47.9 Spondylosis, unspecified; M48.02 Spinal stenosis, cervical region; N18.9 Chronic kidney disease, unspecified; Q33.1 Accessory lobe of lung; Z82.49 Family history of ischemic heart disease and other diseases of the circulatory system; Z96.649 Presence of unspecified artificial hip joint; F32.9 Major depressive disorder, single episode, unspecified; G47.33 Obstructive sleep apnea (adult) (pediatric); K21.9 Gastro-esophageal reflux disease without esophagitis; Z98.51 Tubal ligation status; Z88.8 Allergy status to other drugs, medicaments and biological substances; W18.39XA Other fall on same level, initial encounter; Y93.89 Activity, other specified; Y92.89 Other specified places as the place of occurrence of the external cause; Y99.8 Other external cause status; Z20.822 Contact with and (suspected) exposure to COVID-19
CPT/HCPCS: 36415; 70450; 71045; 72125; 73521; 80048; 80053; 81001; 82550; 82553; 82962; 83605; 83735; 84443; 84484; 85007; 85025; 87086; 93005; 93306; 94640; 96374; 96375; J0610; J1815; J7030; J7040; U0003; 97530-GP; 97535-GO; 99291-25; G0378; J7613